=== PATIENT | female | born 1985 | race American Indian/Alaskan Native ===

== ENCOUNTER 2016-12-11 12:20 | Emergency (ER) | payer MEDICAID ==
[2016-12-11 14:47] LABS: Bacteria,Urine 1+ /HPF (Negative); Bilirubin,Urine NEG (Negative); Blood,Urine LG (Negative); Ketones,Urine NEG (Negative); Leukocyte Esterase,Urine TR (Negative); Mucus,Urine 3+ /HPF; Nitrite,Urine NEG (Negative); Urobilinogen,Urine < 2.0 mg/dL (<2.0)
[2016-12-11 15:02] LABS: Basophils % (Auto) 0.6 % (0.0-1.8); Eosinophils % (Auto) 0.1 % (0.0-4.3); Hematocrit 40.4 % (30.3-42.9); Hemoglobin 13.2 gm/dl (10.1-14.3); Mean Corpuscular HGB Conc 33 % (30-34); Mean Corpuscular Hemoglobin 29 pg (28-32); Mean Corpuscular Volume 90 fl (79-97); Platelet Count 221 K/mm3 (140-440); Red Cell Distribution Width 14.3 % (13.2-15.2); White Blood Count 5.4 K/mm3 (4.5-11.0)
[2016-12-11 15:18] LABS: Anion Gap 17 mmol/L; BUN/Creatinine Ratio 24.28; Blood Urea Nitrogen 17 mg/dL (7-17); Calcium 8.5 mg/dL (8.4-10.2); Carbon Dioxide 25 mmol/L (22-30); Chloride 100.6 mmol/L (98-107); Glucose 104 mg/dL (65-100); Potassium 3.9 mmol/L (3.6-5.0); Sodium 139 mmol/L (137-145)
[2016-12-11] MEDS ORDERED: NACL 0.9% 1000 ML 1,000 ML IV ONE (20:09)
[2016-12-11] MEDS ORDERED: ZOFRAN IV ONE (20:09)
[2016-12-11] MEDS ORDERED: TYLENOL PO ONE (20:10)
--- NOTE | 2016-12-11 20:20 | Emergency Department Report ---
HPI - General Chief Complaint: Nausea/Vomiting/Diarrhea - HPI HPI: 31-year-old female comes in for complaint of nausea vomiting up blood since about 3 AM. Patient reports that she went out last night had a few drinks came home and started vomiting blood she reports that she's had 2 episodes of blood in her vomit. Patient admits to nausea vomiting fever chills body aches patient the legs or arms she feels like she is coming down with the flu. She has past medical history of non-she currently takes no medications. She is not on any control her menses started today since being here at the ER. 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 dysuria no vaginal discharge she does report now that she is having chest pain feels tight since she's got here only had gracy rachana. ED Past Medical Hx - Past Medical History Hx Hypertension: Yes Hx Congestive Heart Failure: No Hx Diabetes: No Hx Deep Vein Thrombosis: No Hx Liver Disease: No Hx Renal Disease: No Hx Sickle Cell Disease: No Hx Seizures: No Hx Asthma: No Hx COPD: No Hx HIV: No - Surgical History Additional Surgical History: cyst on right buttock - Social History Smoking Status: Never Smoker Substance Use Type: Alcohol - Medications Home Medications: Home Medications Medication Instructions Recorded Confirmed Last Taken Type Diphenhydramine HCl [Benadryl 25 mg PO Q6H #30 tablet 10/12/16 Unknown Rx Allergy TAB] ED Review of Systems ROS: Stated complaint: VOMITING BLOOD Other details as noted in HPI Physical Exam - Physical Exam Vital Signs: Vital Signs 12/11/16 12/11/16 14:06 18:36 Temperature 99.2 F 100.2 F H Pulse Rate 110 H 105 H Respiratory 16 16 Rate Blood Pressure 144/97 Blood Pressure 147/99 [Left] O2 Sat by Pulse 100 100 Oximetry Physical Exam: GENERAL: Alert and oriented x3, no apparent distress, Normal Gait, atraumatic. HEAD: Head is normocephalic and a-traumatic. EYES: Extra ocular muscles are intact. Pupils are equal, round, and reactive to light and accommodation. EARS: symetrical, atraumatic, non tender, ear canal clear and moderate cerumen, tympanic membrance non inflamed. gross auditory nml bilaterally. NOSE: Nose symetrical, Nontender,Nares appeared normal. MOUTH:Mouth is well hydrated and without lesions. Tonsils nonerythematous or swollen, Uvula midline, Tongue not elevated. Mucous membranes are moist. Posterior tongue piercing ,pharynx clear, no exudate or lesions. Patent airways. NECK: Supple. Non edematous, No carotid bruits. No lymphadenopathy or thyromegaly. LUNGS: Symetrical with respiration, No wheezing, no rales or crackles, CTAB. HEART: S1, S2 present, regular rate and rhythm without murmur, no rubs, no gallops. ABDOMEN: No organomegaly was noted, Positive bowel sounds, soft, and non- distended. . Tender to palpation epigastric and LUQ. NO CVA tenderness. EXTREMITIES/MUSCULOSKELETAL: No cyanosis, clubbing, rash, lesions or edema. Full ROM bilaterally. UE/E Pulses 2+ bilaterally. LE and UE 5+ strength bilaterally NEUROLOGIC: No focal Deficit, Cranial nerves II through XII are grossly intact. No loss of sensation, No facial droop, Negative rhomberg. PSYCHIATRIC: Mood is congruent with affect, denies suicidal or homicidal ideations. SKIN: Warm and dry, No lesions, No ulceration or induration present ED Course Vital Signs 12/11/16 12/11/16 14:06 18:36 Temperature 99.2 F 100.2 F H Pulse Rate 110 H 105 H Respiratory 16 16 Rate Blood Pressure 144/97 Blood Pressure 147/99 [Left] O2 Sat by Pulse 100 100 Oximetry ED Medical Decision Making - Lab Data Result diagrams: 12/11/16 14:43 12/11/16 14:43 - Radiology Data Radiology results: image reviewed FINAL REPORT PROCEDURE: XR CHEST ROUTINE 2V TECHNIQUE: Two views of the chest are obtained HISTORY: chest pain chest tightness COMPARISON: No prior studies are available for comparison. FINDINGS: The heart is normal in size. There is no focal infiltrate, pneumothorax or pleural effusion. IMPRESSION: No abnormalities are seen. Transcribed By: PATT Dictated By: MARYAN SOTO JR, MD Electronically Authenticated By: MARYAN SOTO JR, MD Signed Date/Time: 12/11/162243 - Medical Decision Making CBC CMP and lipase amylase CK MB troponin IV fluids normal saline 1000 mL Tylenol 975 mg UA. Has been ordered. Critical care attestation.: If time is entered above; I have spent that time in minutes in the direct care of this critically ill patient, excluding procedure time. ED Disposition Clinical Impression: Nausea & vomiting Qualifiers: Vomiting type: unspecified Vomiting Intractability: non-intractable Qualified Code(s): R11.2 - Nausea with vomiting, unspecified Disposition: DISCHARGED TO HOME OR SELFCARE Is pt being admited?: No Does the pt Need Aspirin: No Condition: Stable Instructions: Acute Nausea and Vomiting (ED) Additional Instructions: Please contained to drink follow with the primary care provider. Referrals: BETTE RENDON MD [Primary Care Provider] - 3-5 Days BRITT REED MD [Staff Physician] - 3-5 Days Forms: Work/School Release Form(ED)
[2016-12-11 21:29] LABS: Amylase 80 units/L (27-131); Lipase 21 units/L (13-60)
[2016-12-11 21:32] LABS: Creatine Kinase 106 units/L (30-135)
[2016-12-11 21:36] LABS: Creatine Kinase MB < 1.0 ng/mL (0.0-4.0)
--- NOTE | 2016-12-11 21:47 | XRay Report ---
FINAL REPORT PROCEDURE: XR CHEST ROUTINE 2V TECHNIQUE: Two views of the chest are obtained HISTORY: chest pain chest tightness COMPARISON: No prior studies are available for comparison. FINDINGS: The heart is normal in size. There is no focal infiltrate, pneumothorax or pleural effusion. IMPRESSION: No abnormalities are seen.
[2016-12-11 23:12] VITALS: BP 112/76
== END 2016-12-12 01:35 | disposition home or self-care (01) ==
LOC: ED 12:20
DX: R11.2 Nausea with vomiting, unspecified (principal); I10 Essential (primary) hypertension
CPT/HCPCS: 36415; 71020; 80048; 81001; 81025; 82150; 82550; 82553; 83690; 84484; 85025; 87400; 93005; 93010; 96361; 96374; 99284; J2405; J7030; 82962

== ENCOUNTER 2017-03-10 18:24 | Emergency (ER) | payer MEDICAID ==
[2017-03-10 19:08] VITALS: BP 158/101
[2017-03-10] MEDS ORDERED: NORCO 5/325 PO ONE (21:48)
--- NOTE | 2017-03-10 21:52 | Emergency Department Report ---
- General Chief complaint: Skin/Abscess/Foreign Body Stated complaint: SPIDER BITE ON LEFT BUTTOCKS Source: patient Mode of arrival: Ambulatory Limitations: No Limitations - History of Present Illness Initial comments: 31-year-old -[place] female comes in for complaint: The buttocks area. Patient reports that she had an on 03/08/2017 and noticed a visible in the buttocks area for one day. Patient reports no past medical history currently takes no medication has no known drug allergies. Patient reports that she did have a history of them and had to have surgery for pilonidal cyst. MD complaint: abscess/boil -: days(s) (1) Location: buttocks Severity: severe Severity scale (0 -10): 10 Quality: sharp Consistency: intermittent Worsens with: palpation - Related Data Previous Rx's Medication Instructions Recorded Last Taken Type Diphenhydramine HCl [Benadryl 25 mg PO Q6H #30 tablet 10/12/16 Unknown Rx Allergy TAB] Acetaminophen/Codeine [Tylenol 1 tab PO Q6H PRN #20 tab 03/10/17 Unknown Rx /Codeine # 3 tab] Cephalexin [Keflex] 500 mg PO QID #40 capsule 03/10/17 Unknown Rx Allergies Allergy/AdvReac Type Severity Reaction Status Date / Time No Known Allergies Allergy Verified 08/08/15 16:38 Abscess Boil HPI - HPI Chief Complaint: Skin/Abscess/Foreign Body Stated Complaint: SPIDER BITE ON LEFT BUTTOCKS Home Medications: Previous Rx's Medication Instructions Recorded Last Taken Type Diphenhydramine HCl [Benadryl 25 mg PO Q6H #30 tablet 10/12/16 Unknown Rx Allergy TAB] Acetaminophen/Codeine [Tylenol 1 tab PO Q6H PRN #20 tab 03/10/17 Unknown Rx /Codeine # 3 tab] Cephalexin [Keflex] 500 mg PO QID #40 capsule 03/10/17 Unknown Rx Allergies/Adverse Reactions: Allergies Allergy/AdvReac Type Severity Reaction Status Date / Time No Known Allergies Allergy Verified 08/08/15 16:38 ED Review of Systems ROS: Stated complaint: SPIDER BITE ON LEFT BUTTOCKS Other details as noted in HPI Constitutional: denies: chills, fever Eyes: denies: eye pain, eye discharge, vision change ENT: denies: ear pain, throat pain Respiratory: denies: cough, shortness of breath, wheezing Cardiovascular: denies: chest pain, palpitations Endocrine: no symptoms reported Gastrointestinal: denies: abdominal pain, nausea, diarrhea Genitourinary: denies: urgency, dysuria, discharge Musculoskeletal: denies: back pain, joint swelling, arthralgia Skin: lesions Neurological: denies: headache, weakness, paresthesias Psychiatric: denies: anxiety, depression ED Past Medical Hx - Past Medical History Previous Medical History?: Yes Hx Hypertension: Yes Hx Congestive Heart Failure: No Hx Diabetes: No Hx Deep Vein Thrombosis: No Hx Liver Disease: No Hx Renal Disease: No Hx Sickle Cell Disease: No Hx Seizures: No Hx Asthma: No Hx COPD: No Hx HIV: No - Surgical History Past Surgical History?: Yes Additional Surgical History: cyst on right buttock - Social History Smoking Status: Never Smoker Substance Use Type: Alcohol, Prescribed - Medications Home Medications: Home Medications Medication Instructions Recorded Confirmed Last Taken Type Diphenhydramine HCl [Benadryl 25 mg PO Q6H #30 tablet 10/12/16 Unknown Rx Allergy TAB] Acetaminophen/Codeine [Tylenol 1 tab PO Q6H PRN #20 tab 03/10/17 Unknown Rx /Codeine # 3 tab] Cephalexin [Keflex] 500 mg PO QID #40 capsule 03/10/17 Unknown Rx ED Physical Exam - General Limitations: No Limitations General appearance: alert, in no apparent distress - Head Head exam: Present: atraumatic, normocephalic - ENT ENT exam: Present: normal exam - Neck Neck exam: Present: normal inspection - Respiratory Respiratory exam: Present: normal lung sounds bilaterally. Absent: respiratory distress - Skin Skin exam: Present: warm, dry, intact, erythema - Expanded Skin Exam Expanded Description of rash: Present: size, tenderness, erythematous, swelling, indurated 1 - indurated with erythematous base tender to palpate ED Course Vital Signs 03/10/17 19:05 Temperature 99.1 F Pulse Rate 87 Respiratory 20 Rate Blood Pressure 158/101 O2 Sat by Pulse 100 Oximetry ED Medical Decision Making - Medical Decision Making Assessment evaluated by this provider fast track. Discussed the patient please refer antibiotics give her Diflucan for the yeast infection that she reports she commonly gets after being on antibiotic therapy. Discussed the patient she needs to place warm moist compresses to the area every 20 minutes to an hour and to return for reevaluation in 3-4 days. Discussed with her that is very important for her to take her antibiotics as prescribed. Critical care attestation.: If time is entered above; I have spent that time in minutes in the direct care of this critically ill patient, excluding procedure time. ED Disposition Clinical Impression: Boil of buttock Disposition: DISCHARGED TO HOME OR SELFCARE Is pt being admited?: No Does the pt Need Aspirin: No Condition: Stable Instructions: Abscess (ED) Additional Instructions: Pleases take antibiotics as prescribed. Do not operate heavy machinery while taking the Tylenol No. 3. Please [address] warm compresses to the abscess site and return to be reevaluated in 3-5 days. Prescriptions: Acetaminophen/Codeine [Tylenol /Codeine # 3 tab] 1 tab PO Q6H PRN #20 tab PRN Reason: Pain Cephalexin [Keflex] 500 mg PO QID #40 capsule Referrals: PRIMARY CARE, [Primary Care Provider] - 3-5 Days Forms: Work/School Release Form(ED)
== END 2017-03-10 22:10 | disposition home or self-care (01) ==
LOC: ED 18:24
DX: L02.32 Furuncle of buttock (principal)
CPT/HCPCS: 99282

== ENCOUNTER 2019-01-17 09:28 | Emergency (ER) | payer MEDICAID ==
--- NOTE | 2019-01-17 10:48 | Emergency Department Report ---
Abscess Boil HPI - HPI Chief Complaint: Skin/Abscess/Foreign Body Stated Complaint: LOWER BACK/BUTTOCKS Time Seen by Provider: 01/17/19 10:07 Duration: 1 Day Location: Sacral/Pilonidal Severity: Mild History: Yes Previous History, No Fever, No Pain, No Purulent Drainage, No Numbness, No Foreign Body, No Insect Bite HPI: Patient is a 33-year-old female presents complaining pain in her bilateral region this is going on for a day. Patient states that she had pilonidal cyst many years ago and thinks it uis back. She denies injury, trauma, fall Home Medications: Previous Rx's Medication Instructions Recorded Last Taken Type Diphenhydramine HCl [Benadryl 25 mg PO Q6H #30 tablet 10/12/16 Unknown Rx Allergy TAB] Acetaminophen/Codeine [Tylenol 1 tab PO Q6H PRN #20 tab 03/10/17 Unknown Rx /Codeine # 3 tab] Cephalexin [Keflex] 500 mg PO QID #40 capsule 03/10/17 Unknown Rx Clindamycin [Clindamycin CAP] 300 mg PO Q8H #21 cap 01/17/19 Unknown Rx Ibuprofen [Motrin] 800 mg PO Q8HR #30 tablet 01/17/19 Unknown Rx Sulfamethoxazole/Trimethoprim 1 each PO BID #20 tablet 01/17/19 Unknown Rx [Bactrim DS TAB] Allergies/Adverse Reactions: Allergies Allergy/AdvReac Type Severity Reaction Status Date / Time No Known Allergies Allergy Verified 08/08/15 16:38 ED Review of Systems ROS: Stated complaint: LOWER BACK/BUTTOCKS Other details as noted in HPI Comment: All other systems reviewed and negative ED Past Medical Hx - Past Medical History Hx Hypertension: Yes Hx Congestive Heart Failure: No Hx Diabetes: No Hx Deep Vein Thrombosis: No Hx Liver Disease: No Hx Renal Disease: No Hx Sickle Cell Disease: No Hx Seizures: No Hx Asthma: No Hx COPD: No Hx HIV: No - Surgical History Additional Surgical History: cyst on right buttock - Social History Smoking Status: Never Smoker Substance Use Type: None - Medications Home Medications: Home Medications Medication Instructions Recorded Confirmed Last Taken Type Diphenhydramine HCl [Benadryl 25 mg PO Q6H #30 tablet 10/12/16 Unknown Rx Allergy TAB] Acetaminophen/Codeine [Tylenol 1 tab PO Q6H PRN #20 tab 05/17/17 Unknown Rx /Codeine # 3 tab] Cephalexin [Keflex] 500 mg PO QID #40 capsule 03/10/17 Unknown Rx Clindamycin [Clindamycin CAP] 300 mg PO Q8H #21 cap 01/17/19 Unknown Rx Ibuprofen [Motrin] 800 mg PO Q8HR #30 tablet 01/17/19 Unknown Rx Sulfamethoxazole/Trimethoprim 1 each PO BID #20 tablet 01/17/19 Unknown Rx [Bactrim DS TAB] ED Abscess Boil Physical Exam - Exam General: Vital signs noted. No distress. Alert and acting appropriately. Size: 1 cm Exam: Yes Tenderness, Yes Normal Neurologic Exam, Yes Normal Circulation, No Fluctuance, No Surrounding Cellulites/Erythema, No Lymphangitis, No Crepitation, No Heart Murmur Exam: Scar tissue seen and palpated pilonidal crest, no swelling, no erythema, no discharge I & D Note - I & D Note I & D Note: There is no need for incision and drainage, ED Course Vital Signs 01/17/19 01/17/19 09:33 09:37 Temperature 97.6 F 97.6 F Pulse Rate 77 77 Respiratory 16 16 Rate Blood Pressure 139/97 Blood Pressure 139/97 [Right] O2 Sat by Pulse 98 98 Oximetry Critical care attestation.: If time is entered above; I have spent that time in minutes in the direct care of this critically ill patient, excluding procedure time. ED Medical Decision Making - Medical Decision Making 33-year-old female presents with a pilonidal cyst. Patient had an pilonidal incision and drainage in 2012. At this time there is no fluctuance or sign of abscess present. We'll prophylax with patient antibiotics and heat therapy. Discussed the patient's symptoms worsen to return to the ED. Vital signs are normal she is in no acute distress she understands instructions given instruction ED Disposition Clinical Impression: Pilonidal cyst without abscess Disposition: DC-01 TO HOME OR SELFCARE Is pt being admited?: No Does the pt Need Aspirin: No Condition: Stable Instructions: Abscess (ED), Cellulitis (ED), Heat Pack Application (ED) Additional Instructions: Make sure to follow up with the primary care physician as discussed. Take all your medications as you've been prescribed. If you have any worsening symptoms or develop new symptoms please return to ED immediately. Prescriptions: Sulfamethoxazole/Trimethoprim [Bactrim DS TAB] 1 each PO BID #20 tablet Clindamycin [Clindamycin CAP] 300 mg PO Q8H #21 cap Ibuprofen [Motrin] 800 mg PO Q8HR #30 tablet Referrals: SANDEE STEWART MD [Primary Care Provider] - 3-5 Days Forms: Accompanied Note, Work/School Release Form(ED) Time of Disposition: 10:52
[2019-01-17] MEDS ORDERED: IBUPROFEN PO ONE (11:00)
[2019-01-17] MEDS ORDERED: IBUPROFEN ONE (11:09)
[2019-01-17 11:19] VITALS: BP 135/88
== END 2019-01-17 11:18 | disposition home or self-care (01) ==
LOC: ED 09:28
DX: L05.91 Pilonidal cyst without abscess (principal); I10 Essential (primary) hypertension
CPT/HCPCS: 99282

== ENCOUNTER 2019-08-04 11:31 | Emergency (ER) | payer MEDICAID ==
--- NOTE | 2019-08-04 11:44 | Event Note ---
ED Screening Note Date of service: 08/04/19 Time: 11:42 ED Screening Note: 34 y/o female comes in for cough, fever, nasal congestion. Time 2 day. LMP 07/05/19. This initial assessment/diagnostic orders/clinical plan/treatment(s) is/are subject to change based on patients health status, clinical progression and re- assessment by fellow clinical providers in the ED. Further treatment and workup at subsequent clinical providers discretion. Patient/guardian urged not to elope from the ED as their condition may be serious if not clinically assessed and managed. Initial orders include:
--- NOTE | 2019-08-04 12:08 | XRay Report ---
CHEST 2 VIEWS INDICATION / CLINICAL INFORMATION: cough with fever. COMPARISON: Chest x-ray 12/11/2016 FINDINGS: SUPPORT DEVICES: None. HEART / MEDIASTINUM: No significant abnormality. LUNGS / PLEURA: No significant pulmonary or pleural abnormality. No pneumothorax. ADDITIONAL FINDINGS: No significant additional findings. IMPRESSION: 1. No acute findings. Signer Name: Phillip Ying MD Signed: 08/04/2019 12:03 PM Workstation Name: [id number]
--- NOTE | 2019-08-04 14:11 | Emergency Department Report ---
- General Chief Complaint: Upper Respiratory Infection Stated Complaint: FLU LIKE SX Time Seen by Provider: 08/04/19 11:40 Source: patient Mode of arrival: Ambulatory Limitations: No Limitations - History of Present Illness Initial Comments: Patient reports flu-like symptoms that started two days ago MD Complaint: fever, cough, rhinorrhea, nasal congestion, other (chills) Onset/Timin -: days(s) Severity: moderate Severity scale (0 -10): 6 Quality: other (none) Consistency: intermittent Improves With: nothing Worsens With: activity Context: sick contacts Associated Symptoms: fever, chills, myalgias, rhinorrhea, nasal congestion, cough. denies: diaphoresis, headache, sore throat, stiff neck, chest pain, shortness of breath, abdominal pain, nausea, vomiting, diarrhea, dysuria, rash, confusion, right sweats, weight loss, epistaxis, hoarseness, ear pain Treatments Prior to Arrival: "cold medicine" - Related Data Previous Rx's Medication Instructions Recorded Last Taken Type Diphenhydramine HCl [Benadryl 25 mg PO Q6H #30 tablet 10/12/16 Unknown Rx Allergy TAB] Acetaminophen/Codeine [Tylenol 1 tab PO Q6H PRN #20 tab 03/10/17 Unknown Rx /Codeine # 3 tab] Cephalexin [Keflex] 500 mg PO QID #40 capsule 03/10/17 Unknown Rx Clindamycin [Clindamycin CAP] 300 mg PO Q8H #21 cap 01/17/19 Unknown Rx Ibuprofen [Motrin] 800 mg PO Q8HR #30 tablet 01/17/19 Unknown Rx Sulfamethoxazole/Trimethoprim 1 each PO BID #20 tablet 01/17/19 Unknown Rx [Bactrim DS TAB] Cyclobenzaprine [Flexeril 10mg] 10 mg PO Q12H PRN #14 tablet 03/04/19 Unknown Rx Ibuprofen [Motrin] 800 mg PO Q8HR PRN #12 tablet 03/04/19 Unknown Rx Fexofenadine/Pseudoephedrine 1 each PO DAILY #15 tab.er.24h 08/04/19 Unknown Rx [Ana-D 24 Hour Tablet] Ibuprofen [Motrin 600 MG tab] 600 mg PO Q8H PRN #30 tablet 08/04/19 Unknown Rx guaiFENesin ER [Mucinex ER] 600 mg PO Q12H #20 tablet.er 08/04/19 Unknown Rx predniSONE [Deltasone] 50 mg PO QDAY #5 tab 08/04/19 Unknown Rx Allergies Allergy/AdvReac Type Severity Reaction Status Date / Time No Known Allergies Allergy Verified 08/08/15 16:38 ED Review of Systems ROS: Stated complaint: FLU LIKE SX Other details as noted in HPI Constitutional: chills, fever Eyes: denies: eye pain, eye discharge, vision change ENT: congestion. denies: ear pain, throat pain Respiratory: cough. denies: orthopnea, shortness of breath, SOB with exertion, SOB at rest, stridor, wheezing Cardiovascular: denies: chest pain, palpitations Endocrine: no symptoms reported Gastrointestinal: denies: abdominal pain, nausea, diarrhea, constipation, hematemesis, melena Genitourinary: denies: urgency, dysuria, discharge Musculoskeletal: denies: back pain, joint swelling, arthralgia Skin: denies: rash, lesions Neurological: denies: headache, weakness, paresthesias Psychiatric: denies: anxiety, depression Hematological/Lymphatic: denies: easy bleeding, easy bruising ED Past Medical Hx - Past Medical History Previous Medical History?: Yes Hx Hypertension: Yes Hx Congestive Heart Failure: No Hx Diabetes: No Hx Deep Vein Thrombosis: No Hx Liver Disease: No Hx Renal Disease: No Hx Sickle Cell Disease: No Hx Seizures: No Hx Asthma: No Hx COPD: No Hx HIV: No Additional medical history: Vaginal delivery x 2 - Surgical History Past Surgical History?: Yes Additional Surgical History: cyst on right buttock - Social History Smoking Status: Never Smoker Substance Use Type: Alcohol - Medications Home Medications: Home Medications Medication Instructions Recorded Confirmed Last Taken Type Diphenhydramine HCl [Benadryl 25 mg PO Q6H #30 tablet 10/12/16 Unknown Rx Allergy TAB] Acetaminophen/Codeine [Tylenol 1 tab PO Q6H PRN #20 tab 03/10/17 Unknown Rx /Codeine # 3 tab] Cephalexin [Keflex] 500 mg PO QID #40 capsule 03/10/17 Unknown Rx Clindamycin [Clindamycin CAP] 300 mg PO Q8H #21 cap 01/17/19 Unknown Rx Ibuprofen [Motrin] 800 mg PO Q8HR #30 tablet 01/17/19 Unknown Rx Sulfamethoxazole/Trimethoprim 1 each PO BID #20 tablet 01/17/19 Unknown Rx [Bactrim DS TAB] Cyclobenzaprine [Flexeril 10mg] 10 mg PO Q12H PRN #14 tablet 03/04/19 Unknown Rx Ibuprofen [Motrin] 800 mg PO Q8HR PRN #12 tablet 03/04/19 Unknown Rx Fexofenadine/Pseudoephedrine 1 each PO DAILY #15 tab.er.24h 08/04/19 Unknown Rx [Ana-D 24 Hour Tablet] Ibuprofen [Motrin 600 MG tab] 600 mg PO Q8H PRN #30 tablet 08/04/19 Unknown Rx guaiFENesin ER [Mucinex ER] 600 mg PO Q12H #20 tablet.er 08/04/19 Unknown Rx predniSONE [Deltasone] 50 mg PO QDAY #5 tab 08/04/19 Unknown Rx ED Physical Exam - General Limitations: No Limitations General appearance: alert, in no apparent distress - Head Head exam: Present: atraumatic, normocephalic - ENT ENT exam: Present: normal orophraynx, mucous membranes moist, TM's normal bilaterally, normal external ear exam, other (nasal turbinates with swelling ) - Expanded ENT Exam Expanded Ear exam: Present: normal external inspection. Absent: auricular hematoma Mouth exam: Present: normal external inspection, tongue normal. Absent: drooling, trismus, muffled voice, tongue elevation, laceration Teeth exam: Present: normal inspection. Absent: dental caries, fractured tooth #, dental tenderness #, gingival enlargement Throat exam: Positive: normal inspection. Negative: tonsillar erythema, tonsillomegaly, tonsillar exudate, L peritonsillar mass - Neck Neck exam: Present: normal inspection, full ROM. Absent: tenderness, meningismus, lymphadenopathy, thyromegaly - Respiratory Respiratory exam: Present: normal lung sounds bilaterally. Absent: respiratory distress, wheezes, rales, rhonchi, stridor, chest wall tenderness, accessory muscle use, decreased breath sounds, prolonged expiratory - Cardiovascular Cardiovascular Exam: Present: regular rate, normal rhythm, normal heart sounds. Absent: systolic murmur, diastolic murmur, rubs, gallop - Neurological Exam Neurological exam: Present: alert, oriented X3, CN II-XII intact, normal gait, reflexes normal - Psychiatric Psychiatric exam: Present: normal affect, normal mood - Skin Skin exam: Present: warm, dry, intact, normal color. Absent: rash ED Course Vital Signs 08/04/19 11:40 Temperature 98.8 F Pulse Rate 89 Respiratory 18 Rate Blood Pressure 166/56 O2 Sat by Pulse 100 Oximetry ED Medical Decision Making - Lab Data Vital Signs 08/04/19 11:40 Temperature 98.8 F Pulse Rate 89 Respiratory 18 Rate Blood Pressure 166/56 O2 Sat by Pulse 100 Oximetry - Radiology Data Radiology results: image reviewed CHEST 2 VIEWS INDICATION / CLINICAL INFORMATION: cough with fever. COMPARISON: Chest x-ray 12/11/2016 FINDINGS: SUPPORT DEVICES: None. HEART / MEDIASTINUM: No significant abnormality. LUNGS / PLEURA: No significant pulmonary or pleural abnormality. No pneumothorax. ADDITIONAL FINDINGS: No significant additional findings. IMPRESSION: 1. No acute findings - Medical Decision Making During the course of ED, all other systems are unremarkable except for documentation in HPI. Chest x-ray did not detect no acute findings. She was sent home with prescription for prednisone, ana, Ibuprofen and guaifenesin, follow up with selective referral given at discharge, she verbalized understanding. - Differential Diagnosis URI, Pneumonia, Flu Critical care attestation.: If time is entered above; I have spent that time in minutes in the direct care of this critically ill patient, excluding procedure time. ED Disposition Clinical Impression: Upper respiratory infection Qualifiers: URI type: unspecified URI Qualified Code(s): J06.9 - Acute upper respiratory infection, unspecified Disposition: DC-01 TO HOME OR SELFCARE Is pt being admited?: No Does the pt Need Aspirin: No Condition: Stable Instructions: Upper Respiratory Infection (ED) Additional Instructions: Take medication as directed. Follow up with the selective referral given at discharge Prescriptions: Fexofenadine/Pseudoephedrine [Ana-D 24 Hour Tablet] 1 each PO DAILY #15 tab.er.24h predniSONE [Deltasone] 50 mg PO QDAY #5 tab Ibuprofen [Motrin 600 MG tab] 600 mg PO Q8H PRN #30 tablet PRN Reason: Pain guaiFENesin ER [Mucinex ER] 600 mg PO Q12H #20 tablet.er Referrals: PRIMARY CARE, [Primary Care Provider] - 3-5 Days [facility] [Outside] - 3-5 Days Forms: Work/School Release Form(ED) Time of Disposition: 14:12
[2019-08-04 14:36] VITALS: BP 141/69
== END 2019-08-04 14:36 | disposition home or self-care (01) ==
LOC: ED 11:31
DX: J06.9 Acute upper respiratory infection, unspecified (principal); I10 Essential (primary) hypertension; Z79.899 Other long term (current) drug therapy
CPT/HCPCS: 71046; 99283

== ENCOUNTER 2020-02-11 23:11 | Emergency (ER) | payer MEDICAID ==
[2020-02-11] MEDS ORDERED: SODIUM CHLORIDE 0.9% 500 ML 500 ML IV ONE (23:21)
[2020-02-11] MEDS ORDERED: SODIUM CHLORIDE 0.9% 1000 ML IV SOLN IV ONE (23:39)
[2020-02-11] MEDS ORDERED: PIPERACILLIN/TAZOBACTAM 3.375 3.375 GM/50 ML BAG IV ONE (23:40)
[2020-02-11] MEDS ORDERED: ACETAMINOPHEN 500 MG TAB PO ONE (23:42)
--- NOTE | 2020-02-11 23:46 | Emergency Department Report ---
ED Abdominal Pain HPI - General Chief Complaint: Abdominal Pain Stated Complaint: ABDOMINAL PAIN/BOTTOM HEARTS Time Seen by Provider: 02/11/20 23:38 Source: patient Mode of arrival: Ambulatory Limitations: No Limitations - History of Present Illness Initial Comments: Patient is 34 years old female with no significant past medical history. Patient presented to the ER complaining of lower abdominal pain, pressure in nature, pain increased with urination. Patient also complaining of fever. Patient stated that she had an 3 days ago. She stated that baby was 7 weeks. Patient denied any cough, shortness of breath, congestion or runny nose. Patient denied any contact with patient who is suspected or confirmed COVID-19. During my encounters with this patient was wearing my PPE including and N-95. MD Complaint: abdominal pain Severity scale (0 -10): 10 - Related Data Previous Rx's Medication Instructions Recorded Last Taken Type Diphenhydramine HCl [Benadryl 25 mg PO Q6H #30 tablet 10/12/16 Unknown Rx Allergy TAB] Acetaminophen/Codeine [Tylenol 1 tab PO Q6H PRN #20 tab 03/10/17 Unknown Rx /Codeine # 3 tab] Cephalexin [Keflex] 500 mg PO QID #40 capsule 03/10/17 Unknown Rx Clindamycin [Clindamycin CAP] 300 mg PO Q8H #21 cap 01/17/19 Unknown Rx Ibuprofen [Motrin] 800 mg PO Q8HR #30 tablet 01/17/19 Unknown Rx Sulfamethoxazole/Trimethoprim 1 each PO BID #20 tablet 01/17/19 Unknown Rx [Bactrim DS TAB] Cyclobenzaprine [Flexeril 10mg] 10 mg PO Q12H PRN #14 tablet 03/04/19 Unknown Rx Ibuprofen [Motrin] 800 mg PO Q8HR PRN #12 tablet 03/04/19 Unknown Rx Fexofenadine/Pseudoephedrine 1 each PO DAILY #15 tab.er.24h 08/04/19 Unknown Rx [Ana-D 24 Hour Tablet] Ibuprofen [Motrin 600 MG tab] 600 mg PO Q8H PRN #30 tablet 08/04/19 Unknown Rx guaiFENesin ER [Mucinex ER] 600 mg PO Q12H #20 tablet.er 08/04/19 Unknown Rx predniSONE [Deltasone] 50 mg PO QDAY #5 tab 08/04/19 Unknown Rx Allergies Allergy/AdvReac Type Severity Reaction Status Date / Time No Known Allergies Allergy Verified 08/08/15 16:38 ED Review of Systems ROS: Stated complaint: ABDOMINAL PAIN/BOTTOM HEARTS Other details as noted in HPI Comment: All other systems reviewed and negative Constitutional: chills, fever Respiratory: denies: cough, orthopnea, shortness of breath, SOB with exertion, SOB at rest, wheezing Cardiovascular: palpitations. denies: chest pain Gastrointestinal: abdominal pain. denies: nausea, vomiting, diarrhea, constipation, hematemesis, melena Genitourinary: urgency, dysuria, frequency, hematuria, abnormal menses Musculoskeletal: denies: back pain Neurological: denies: headache ED Past Medical Hx - Past Medical History Previous Medical History?: Yes Hx Hypertension: Yes Hx Congestive Heart Failure: No Hx Diabetes: No Hx Deep Vein Thrombosis: No Hx Liver Disease: No Hx Renal Disease: No Hx Sickle Cell Disease: No Hx Seizures: No Hx Asthma: No Hx COPD: No Hx HIV: No Additional medical history: Vaginal delivery x 2 - Surgical History Past Surgical History?: Yes Additional Surgical History: cyst on right buttock. - Social History Smoking Status: Never Smoker Substance Use Type: None - Medications Home Medications: Home Medications Medication Instructions Recorded Confirmed Last Taken Type Diphenhydramine HCl [Benadryl 25 mg PO Q6H #30 tablet 10/12/16 Unknown Rx Allergy TAB] Acetaminophen/Codeine [Tylenol 1 tab PO Q6H PRN #20 tab 03/10/17 Unknown Rx /Codeine # 3 tab] Cephalexin [Keflex] 500 mg PO QID #40 capsule 03/10/17 Unknown Rx Clindamycin [Clindamycin CAP] 300 mg PO Q8H #21 cap 01/17/19 Unknown Rx Ibuprofen [Motrin] 800 mg PO Q8HR #30 tablet 01/17/19 Unknown Rx Sulfamethoxazole/Trimethoprim 1 each PO BID #20 tablet 01/17/19 Unknown Rx [Bactrim DS TAB] Cyclobenzaprine [Flexeril 10mg] 10 mg PO Q12H PRN #14 tablet 03/04/19 Unknown Rx Ibuprofen [Motrin] 800 mg PO Q8HR PRN #12 tablet 03/04/19 Unknown Rx Fexofenadine/Pseudoephedrine 1 each PO DAILY #15 tab.er.24h 08/04/19 Unknown Rx [Ana-D 24 Hour Tablet] Ibuprofen [Motrin 600 MG tab] 600 mg PO Q8H PRN #30 tablet 08/04/19 Unknown Rx guaiFENesin ER [Mucinex ER] 600 mg PO Q12H #20 tablet.er 08/04/19 Unknown Rx predniSONE [Deltasone] 50 mg PO QDAY #5 tab 08/04/19 Unknown Rx ED Physical Exam - General Limitations: No Limitations General appearance: alert, in no apparent distress - Head Head exam: Present: atraumatic, normocephalic, normal inspection - Eye Eye exam: Present: normal appearance - ENT ENT exam: Present: mucous membranes dry - Neck Neck exam: Present: normal inspection, full ROM. Absent: tenderness, meningismus - Respiratory Respiratory exam: Present: normal lung sounds bilaterally - Cardiovascular Cardiovascular Exam: Present: tachycardia - GI/Abdominal GI/Abdominal exam: Present: soft, tenderness (Suprapubic tenderness,), normal bowel sounds. Absent: distended, guarding, rebound, rigid, organomegaly, mass, bruit, pulsatile mass, hernia - Extremities Exam Extremities exam: Present: normal inspection, full ROM, normal capillary refill. Absent: pedal edema, calf tenderness - Back Exam Back exam: Present: normal inspection, full ROM. Absent: CVA tenderness (R), CVA tenderness (L) - Neurological Exam Neurological exam: Present: alert, oriented X3, CN II-XII intact, normal gait, reflexes normal. Absent: motor sensory deficit - Psychiatric Psychiatric exam: Present: normal mood - Skin Skin exam: Present: warm, dry, intact, normal color ED Course Vital Signs 02/11/20 02/11/20 02/11/20 23:20 23:21 23:38 Temperature 101.9 F H 101.9 F H Pulse Rate 129 H 115 H Respiratory 16 18 13 Rate Blood Pressure 85/37 Blood Pressure 85/37 [Right] O2 Sat by Pulse 99 Oximetry 02/11/20 02/11/20 02/11/20 23:41 23:43 23:46 Temperature Pulse Rate 102 H Respiratory 22 11 L Rate Blood Pressure 139/70 139/70 Blood Pressure [Right] O2 Sat by Pulse 99 99 Oximetry 02/11/20 02/12/20 02/12/20 23:50 00:26 00:30 Temperature Pulse Rate 108 H 104 H 96 H Respiratory 14 16 26 H Rate Blood Pressure 139/70 146/76 152/77 Blood Pressure [Right] O2 Sat by Pulse 99 Oximetry 02/12/20 02/12/20 02/12/20 00:46 01:00 01:16 Temperature Pulse Rate 97 H 91 H 91 H Respiratory 21 14 10 L Rate Blood Pressure 152/77 139/70 121/57 Blood Pressure [Right] O2 Sat by Pulse Oximetry ED Medical Decision Making - Lab Data Result diagrams: 02/11/20 23:42 02/11/20 23:42 - Radiology Data Radiology results: report reviewed - Medical Decision Making Patient is 34 years old female with no significant past medical history. Patient presented to the ER complaining of lower abdominal pain, pressure in nature, pain increased with urination. Patient also complaining of fever. Patient stated that she had an 3 days ago. She stated that baby was 7 weeks. Patient denied any cough, shortness of breath, congestion or runny nose. Patient denied any contact with patient who is suspected or confirmed COVID- 19. Sepsis protocol initiated immediately. Patient received normal saline and Zosyn. Patient stated that she is feeling much better. Labs reviewed and is unremarkable including a hemoglobin of 10. Lactic acid is 1. Patient received morphine for pain. Ultrasound of the pelvis showed thickened endometrial with a differential diagnosis of bleeding versus retained products of conception however the radiologist is thinking is more likely secondary to bleeding. I discussed the patient with , OB on-call, he advised patient can be discharged home and to follow-up with her OB that did the procedure for the portion. He also advised to give patient prescription for Cytotec, clindamycin and Zithromax. Patient is medically stable for discharge. Patient advised to return to the ER if she develop any new symptoms. Critical care attestation.: If time is entered above; I have spent that time in minutes in the direct care of this critically ill patient, excluding procedure time. ED Disposition Clinical Impression: Fever, Hypotension, Disposition: DC-01 TO HOME OR SELFCARE Is pt being admited?: No Condition: Stable Instructions: Abdominal Pain (ED), Fever in Adults (ED) Referrals: PRIMARY CARE, [Primary Care Provider] - 3-5 Days
[2020-02-12 00:01] LABS: Basophils % (Auto) 0.6 % (0.0-1.8); Eosinophils # (Auto) 0.1 K/mm3 (0.0-0.4); Eosinophils % (Auto) 1.4 % (0.0-4.3); Hematocrit 32.9 % (30.3-42.9); Hemoglobin 10.8 gm/dl (10.1-14.3); Lymphocytes % (Auto) 11.9 % (13.4-35.0); Mean Corpuscular HGB Conc 33 % (30-34); Mean Corpuscular Volume 87 fl (79-97); Monocytes # (Auto) 0.5 K/mm3 (0.0-0.8); Monocytes % (Auto) 6.6 % (0.0-7.3); Platelet Count 227 K/mm3 (140-440); Red Blood Count 3.77 M/mm3 (3.65-5.03); Red Cell Distribution Width 16.3 % (13.2-15.2)
[2020-02-12 00:11] LABS: INR 0.98 (0.87-1.13)
[2020-02-12 00:22] LABS: Albumin 4.1 g/dL (3.9-5); BUN/Creatinine Ratio 19; Blood Urea Nitrogen 13 mg/dL (7-17); Hemolysis Index 1
[2020-02-12 00:28] LABS: Alanine Aminotransferase < 5 units/L (7-56)
--- NOTE | 2020-02-12 00:51 | Ultrasound Report ---
ULTRASOUND PELVIS INDICATION / CLINICAL INFORMATION: ABDOMINAL PAIN , status post 3 days ago.. TECHNIQUE: Transabdominal. Transvaginal Duplex Color Doppler used: Yes. COMPARISON: None available FINDINGS: UTERUS: Present. - Appearance (if present): Markedly thickened heterogeneous endometrial complex. Probable small fibro id along the anterior fundal region measuring 3.0 x 2.0 cm. - Size in cm (if present): 13.6 x 7.1 x 8.4 cm. - Endometrial Complex (if present): Markedly thickened and heterogeneous in appearance. Color Doppler does not demonstrate any increased abnormal vascularity within the endometrium.. Thickness in cm (if measured) = 4.7 cm - Mass lesions: Small fibroid, as detailed above. - Additional findings: None. LEFT ADNEXA: No significant ovarian cyst or mass. Normal color Doppler blood flow. FREE FLUID: Minimal free fluid present in the posterior cul-de-sac. ADDITIONAL FINDINGS: None. IMPRESSION: 1. Markedly thickened heterogeneous endometrium. There is no suggestion of hypervascularity within th e endometrium. Differential diagnosis includes thickened endometrium due to hemorrhage versus possibl e retained products of conception. The lack of any vascularity within the thickened endometrium is mo re suggestive of hemorrhage rather than retained products. 2. Trace free fluid in the posterior cul-de-sac. Signer Name: Leeanne Abraham MD Signed: 02/12/2020 12:47 AM Workstation Name: [id number]
--- NOTE | 2020-02-12 01:13 | XRay Report ---
CHEST 1 VIEW INDICATION / CLINICAL INFORMATION: possible Sepsis. COMPARISON: 08/04/2019 FINDINGS: SUPPORT DEVICES: None. HEART / MEDIASTINUM: No significant abnormality. LUNGS / PLEURA: No significant pulmonary or pleural abnormality. No pneumothorax. ADDITIONAL FINDINGS: No significant additional findings. IMPRESSION: 1. No acute findings. No interval change. Signer Name: Leeanne Abraham MD Signed: 02/12/2020 1:08 AM Workstation Name: [id number]
[2020-02-12 01:15] LABS: Bacteria,Urine 1+ /HPF (Negative); Bilirubin,Urine NEG (Negative); Blood,Urine SM (Negative); Color,Urine Yellow (Yellow); Mucus,Urine 3+ /HPF; Urobilinogen,Urine < 2.0 mg/dL (<2.0)
[2020-02-12] MEDS ORDERED: MORPHINE 4 MG/1 ML INJ IV ONE (01:26)
[2020-02-12 02:46] VITALS: BP 113/56
== END 2020-02-12 02:58 | disposition home or self-care (01) ==
LOC: ED 23:11
DX: O03.9 Complete or unspecified spontaneous abortion without complication (principal); O26.891 Other specified pregnancy related conditions, first trimester; O26.51 Maternal hypotension syndrome, first trimester; R50.9 Fever, unspecified; Z3A.01 Less than 8 weeks gestation of pregnancy; Z79.899 Other long term (current) drug therapy; Z98.890 Other specified postprocedural states
CPT/HCPCS: 36415; 71045; 76830; 76856; 80053; 81001; 82140; 82805; 84703; 85025; 85610; 87040; 87086; 93005; 96365; 96366; 96375; 99285; J2270; J2543; J7030

== ENCOUNTER 2020-02-15 21:18 | Emergency (ER) | payer MEDICAID ==
[2020-02-15 21:56] LABS: Basophils # (Auto) 0.1 K/mm3 (0.0-0.1); Eosinophils # (Auto) 0.1 K/mm3 (0.0-0.4); Hematocrit 32.5 % (30.3-42.9); Hemoglobin 10.9 gm/dl (10.1-14.3); Mean Corpuscular HGB Conc 33 % (30-34); Mean Corpuscular Volume 87 fl (79-97); Monocytes # (Auto) 0.5 K/mm3 (0.0-0.8); Monocytes % (Auto) 5.7 % (0.0-7.3); Platelet Count 309 K/mm3 (140-440); Red Blood Count 3.73 M/mm3 (3.65-5.03); Red Cell Distribution Width 16.3 % (13.2-15.2)
[2020-02-15] MEDS ORDERED: SODIUM CHLORIDE 0.9% 1000 ML 1,000 ML IV ONE (22:01)
[2020-02-15] MEDS ORDERED: ONDANSETRON 4 MG/2 ML INJ IV ONE (22:01)
[2020-02-15] MEDS ORDERED: MORPHINE 4 MG/1 ML INJ IV ONE (22:01)
[2020-02-15 22:19] LABS: Alanine Aminotransferase 10 units/L (7-56); Albumin 4.1 g/dL (3.9-5); BUN/Creatinine Ratio 14; Blood Urea Nitrogen 11 mg/dL (7-17); Calcium 9.1 mg/dL (8.4-10.2); Hemolysis Index 19
--- NOTE | 2020-02-15 22:59 | Emergency Department Report ---
ED Female HPI - General Chief complaint: Vaginal Bleeding Stated complaint: ABDOMINAL PAIN/HEAVY BLEEDING Time Seen by Provider: 02/15/20 21:58 Source: patient Mode of arrival: Ambulatory Limitations: No Limitations - History of Present Illness Initial comments: Patient is a 34-year-old female presents emergency room with complaints of heavy vaginal bleeding and lower abdominal cramping that began today. She states that she is having to change her pad approximately every 20 to 30 minutes. Patient states on 02/09/2020 she had an at [facility] in [place]. Patient was evaluated in the emergency department on 02/12/2020 and had u ltrasound performed at that time which showed thickened endometrium secondary to hemorrhage versus retained products [employer] was consulted at that time, and patient was discharged with [place], misoprostol, Zofran. She states that she completed the medication and that the bleeding had significantly decreased but then began to feel the symptoms again today. She did not follow-up with an [facility] or the clinic. She states that she does not have an appointment with the clinic until March 01. 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 fever, nausea, vomiting, diarrhea, chest pain, shortness of breath, cough. 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 other past medical history. 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 allergies to medications. - Related Data Previous Rx's Medication Instructions Recorded Last Taken Type Diphenhydramine HCl [Benadryl 25 mg PO Q6H #30 tablet 10/12/16 Unknown Rx Allergy TAB] Acetaminophen/Codeine [Tylenol 1 tab PO Q6H PRN #20 tab 03/10/17 Unknown Rx /Codeine # 3 tab] Cephalexin [Keflex] 500 mg PO QID #40 capsule 03/10/17 Unknown Rx Clindamycin [Clindamycin CAP] 300 mg PO Q8H #21 cap 01/17/19 Unknown Rx Ibuprofen [Motrin] 800 mg PO Q8HR #30 tablet 01/17/19 Unknown Rx Sulfamethoxazole/Trimethoprim 1 each PO BID #20 tablet 01/17/19 Unknown Rx [Bactrim DS TAB] Cyclobenzaprine [Flexeril 10mg] 10 mg PO Q12H PRN #14 tablet 03/04/19 Unknown Rx Ibuprofen [Motrin] 800 mg PO Q8HR PRN #12 tablet 03/04/19 Unknown Rx Fexofenadine/Pseudoephedrine 1 each PO DAILY #15 tab.er.24h 08/04/19 Unknown Rx [Ana-D 24 Hour Tablet] Ibuprofen [Motrin 600 MG tab] 600 mg PO Q8H PRN #30 tablet 08/04/19 Unknown Rx guaiFENesin ER [Mucinex ER] 600 mg PO Q12H #20 tablet.er 08/04/19 Unknown Rx predniSONE [Deltasone] 50 mg PO QDAY #5 tab 08/04/19 Unknown Rx Azithromycin [Zithromax Z-SIDDHARTHA] 250 mg PO DAILY 1 Days tab 02/12/20 Unknown Rx Clindamycin [Clindamycin CAP] 150 mg PO Q8HR #21 capsule 02/12/20 Unknown Rx HYDROcodone/APAP 5-325 [Woodbourne 1 each PO Q6HR PRN #14 tablet 02/12/20 Unknown Rx 5/325] Misoprostol [Cytotec] 100 mcg PO QID #8 tablet 02/12/20 Unknown Rx Ondansetron [Zofran Odt] 4 mg PO Q8HR PRN #14 tab.rapdis 02/12/20 Unknown Rx Methylergonovine [Methergine] 0.2 mg PO Q8HR #3 tablet 02/16/20 Unknown Rx Allergies Allergy/AdvReac Type Severity Reaction Status Date / Time No Known Allergies Allergy Verified 02/16/20 00:40 ED Review of Systems ROS: Stated complaint: ABDOMINAL PAIN/HEAVY BLEEDING Other details as noted in HPI Comment: All other systems reviewed and negative ED Past Medical Hx - Past Medical History Hx Hypertension: Yes Hx Congestive Heart Failure: No Hx Diabetes: No Hx Deep Vein Thrombosis: No Hx Liver Disease: No Hx Renal Disease: No Hx Sickle Cell Disease: No Hx Seizures: No Hx Asthma: No Hx COPD: No Hx HIV: No Additional medical history: Vaginal delivery x 2 - Surgical History Additional Surgical History: cyst on right buttock. - Social History Smoking Status: Never Smoker Substance Use Type: None - Medications Home Medications: Home Medications Medication Instructions Recorded Confirmed Last Taken Type Diphenhydramine HCl [Benadryl 25 mg PO Q6H #30 tablet 10/12/16 Unknown Rx Allergy TAB] Acetaminophen/Codeine [Tylenol 1 tab PO Q6H PRN #20 tab 03/10/17 Unknown Rx /Codeine # 3 tab] Cephalexin [Keflex] 500 mg PO QID #40 capsule 03/10/17 Unknown Rx Clindamycin [Clindamycin CAP] 300 mg PO Q8H #21 cap 01/17/19 Unknown Rx Ibuprofen [Motrin] 800 mg PO Q8HR #30 tablet 01/17/19 Unknown Rx Sulfamethoxazole/Trimethoprim 1 each PO BID #20 tablet 01/17/19 Unknown Rx [Bactrim DS TAB] Cyclobenzaprine [Flexeril 10mg] 10 mg PO Q12H PRN #14 tablet 03/04/19 Unknown Rx Ibuprofen [Motrin] 800 mg PO Q8HR PRN #12 tablet 03/04/19 Unknown Rx Fexofenadine/Pseudoephedrine 1 each PO DAILY #15 tab.er.24h 08/04/19 Unknown Rx [Ana-D 24 Hour Tablet] Ibuprofen [Motrin 600 MG tab] 600 mg PO Q8H PRN #30 tablet 08/04/19 Unknown Rx guaiFENesin ER [Mucinex ER] 600 mg PO Q12H #20 tablet.er 08/04/19 Unknown Rx predniSONE [Deltasone] 50 mg PO QDAY #5 tab 08/04/19 Unknown Rx Azithromycin [Zithromax Z-SIDDHARTHA] 250 mg PO DAILY 1 Days tab 02/12/20 Unknown Rx Clindamycin [Clindamycin CAP] 150 mg PO Q8HR #21 capsule 02/12/20 Unknown Rx HYDROcodone/APAP 5-325 [[place] 1 each PO Q6HR PRN #14 tablet 02/12/20 Unknown Rx 5/325] Misoprostol [Cytotec] 100 mcg PO QID #8 tablet 02/12/20 Unknown Rx Ondansetron [Zofran Odt] 4 mg PO Q8HR PRN #14 tab.rapdis 02/12/20 Unknown Rx Methylergonovine [Methergine] 0.2 mg PO Q8HR #3 tablet 02/16/20 Unknown Rx ED Physical Exam - General Limitations: No Limitations General appearance: alert, in no apparent distress - Head Head exam: Present: atraumatic, normocephalic - Eye Eye exam: Present: normal appearance - ENT ENT exam: Present: mucous membranes moist - Respiratory Respiratory exam: Present: normal lung sounds bilaterally. Absent: respiratory distress, wheezes, rales, rhonchi, stridor, chest wall tenderness, accessory muscle use, decreased breath sounds, prolonged expiratory - Cardiovascular Cardiovascular Exam: Present: regular rate, normal rhythm, normal heart sounds. Absent: systolic murmur, diastolic murmur, rubs, gallop - GI/Abdominal GI/Abdominal exam: Present: soft, tenderness (suprapubic), normal bowel sounds. Absent: distended, guarding, rebound, rigid - Neurological Exam Neurological exam: Present: alert, oriented X3 - Psychiatric Psychiatric exam: Present: normal affect, normal mood - Skin Skin exam: Present: warm, dry, intact ED Course Vital Signs 02/15/20 02/15/20 21:25 23:44 Temperature 98.7 F Pulse Rate 96 H 67 Respiratory 18 18 Rate Blood Pressure 149/107 Blood Pressure 127/78 [Right] O2 Sat by Pulse 98 100 Oximetry - Consultations Consultation #1: 02/16/20 00:[address] Pinedo, [employer] discussed patient history and results, recommended to give patient IM Methergine now, will see patient in her outpatient office in [place] at 9:45 AM, advised to send patient home on Methergine p.o. every 6-8 hours for a total of 3 doses, also advised to discuss with patient that she would also need to follow-up with the clinic ED Medical Decision Making - Lab Data Result diagrams: 02/15/20 21:39 02/15/20 21:39 Lab Results 02/15/20 02/15/20 02/15/20 Range/Units 21:39 21:39 21:53 WBC 8.2 (4.5-11.0) K/mm3 RBC 3.73 (3.65-5.03) M/mm3 Hgb 10.9 (10.1-14.3) gm/dl Hct 32.5 (30.3-42.9) % MCV 87 (79-97) fl MCH 29 (28-32) pg MCHC 33 (30-34) % RDW 16.3 H (13.2-15.2) % Plt Count 309 (140-440) K/mm3 Lymph % (Auto) 25.0 (13.4-35.0) % Dillon % (Auto) 5.7 (0.0-7.3) % Eos % (Auto) 1.0 (0.0-4.3) % Baso % (Auto) 1.0 (0.0-1.8) % Lymph # 2.0 (1.2-5.4) K/mm3 Dillon # 0.5 (0.0-0.8) K/mm3 Eos # 0.1 (0.0-0.4) K/mm3 Baso # 0.1 (0.0-0.1) K/mm3 Seg Neutrophils % 67.3 (40.0-70.0) % Seg Neutrophils # 5.5 (1.8-7.7) K/mm3 Sodium 138 (137-145) mmol/L Potassium 4.2 (3.6-5.0) mmol/L Chloride 101.8 (98-107) mmol/L Carbon Dioxide 21 L (22-30) mmol/L Anion Gap 19 mmol/L BUN 11 (7-17) mg/dL Creatinine 0.8 (0.7-1.2) mg/dL Estimated GFR > 60 ml/min BUN/Creatinine Ratio 14 % Glucose 105 H (65-100) mg/dL Calcium 9.1 (8.4-10.2) mg/dL Total Bilirubin 0.20 (0.1-1.2) mg/dL AST 11 (5-40) units/L ALT 10 (7-56) units/L Alkaline Phosphatase 38 (35-129) units/L Total Protein 7.2 (6.3-8.2) g/dL Albumin 4.1 (3.9-5) g/dL Albumin/Globulin Ratio 1.3 % HCG, Quant 4696 H (0-4) mIU/mL - Radiology Data Radiology results: report reviewed Ultrasound pelvis Interpreted by Leeanne Abraham MD Findings: Uterus present no significant abnormality, 13.2 x 7 x 6.4 cm, endometrial complex remains thickened and mildly heterogeneous, measuring 13 mm. This is markedly improved compared with the prior recent ultrasound in which the endometrium measured 4.7 cm. A 2.5 cm solid mass is again noted along the anterior myometrium consistent with a small fibroid. There is a new small hypoechoic mass along the posterior myometrium measuring 1.6 cm possibly another small fibroid. Right adnexa no significant ovarian cyst or mass normal color Doppler flow 1.3 cm small cyst identified within the right ovary. Left adnexa no significant ovarian cyst or mass. Normal color Doppler blood flow. Trace free fluid is present in the posterior cul-de-sac. Impression: The endometrium remains abnormally thickened, measuring 13 mm. However this is markedly improved compared to the prior ultrasound of 02/12/2020 in which the endometrial complex measured 47 mm in thickness. No significant adnexal mass - Medical Decision Making Patient is a 34-year-old female presents emergency room with complaints of heavy vaginal bleeding and lower abdominal cramping that began today. She states that she is having to change her pad approximately every 20 to 30 minutes. Patient states on 02/09/2020 she had an at [facility] in [place]. Patient was evaluated in the emergency department on 02/12/2020 and had ultrasound performed at that time which showed thickened endometrium secondary to hemorrhage versus retained products [employer] was consulted at that time, and patient was discharged with Wood[place], misoprostol, Zofran. She states that she completed the medication and that the bleeding had significantly decreased but then began to feel the symptoms again today. She did not follow-up with an [facility]ER or the clinic. She states that she does not have an appointment with the clinic until March 01. 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 fever, nausea, vomiting, diarrhea, chest pain, shortness of breath, cough. 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 other past medical history. 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 allergies to medications. Initial triage vitals with mild elevation of blood pressure which improved upon repeat to normal. On exam patient has suprapubic tenderness to palpation, no guarding, no rebound, no rigidity, no distention, no peritoneal signs. H&H are normal. hCG quant is 4696, no previous quant for comparison. Patient is Rh+. pelvic US: The endometrium remains abnormally thickened, measuring 13 mm. However this is markedly improved compared to the prior ultrasound of 02/12/2020 in which the endometrial complex measured 47 mm in thickness. No significant adnexal mass. Patient given 1 L fluids, morphine, Zofran and symptoms improved. Discussed case with Dr. Vincent, ER attending who recommended discussing case with juvenile detention officer [employer]. Spoke to Dr. Pinedo, [employer] discussed patient history and results, recommended to give patient IM Methergine 0.2 mg now, will see patient in her outpatient office in [place] at 9:45 AM, advised to send patient home on Methergine p.o. every 6-8 hours for a total of 3 doses, also advised to discuss with patient that she would also need to follow-up with the clinic. Discussed all results with patient and patient given ultrasound report to take to [facility] [facility]. Patient given prescription for Methergine. Patient given Dr. Pinedo's information to follow-up in her office on 02/16/2020 at 9:45 AM. advised pt Please take medication as prescribed. May take ibuprofen as needed for discomfort. May take the Woodbourne you are prescribed as needed. Follow-up with Dr. Pinedo, P[employer] [facility]ER at 9:45 AM in the morning (02/16/2020). Please also follow-up with the clinic as soon as possible. Return to the emergency room for any new or worsening symptoms. - Differential Diagnosis complication, menorrhagia, retained products of conception Critical care attestation.: If time is entered above; I have spent that time in minutes in the direct care of this critically ill patient, excluding procedure time. ED Disposition Clinical Impression: Suprapubic cramping, Post- complication Menorrhagia Qualifiers: Menorrhagia type: with irregular cycle Qualified Code(s): N92.1 - Excessive and frequent menstruation with irregular cycle Disposition: DC-01 TO HOME OR SELFCARE Is pt being admited?: No Does the pt Need Aspirin: No Condition: Stable Instructions: Menorrhagia (ED) Additional Instructions: Please take medication as prescribed. May take ibuprofen as needed for discomfort. May take the Woodbourne you are prescribed as needed. Follow-up with Dr. Pinedo, P[employer] [facility]ER at 9:45 AM in the morning (02/16/2020). Please also follow- up with the clinic as soon as possible. Return to the emergency room for any new or worsening symptoms. Prescriptions: Methylergonovine [Methergine] 0.2 mg PO Q8HR #3 tablet Referrals: LINH PINEDO MD [Staff Physician] - 24 Hours Time of Disposition: 00:26 Print Language: [place]ICAN CITIZEN
[2020-02-15 23:53] VITALS: BP 127/78
[2020-02-16] MEDS ORDERED: METHYLERGONOVINE MALEATE 0.2 MG/ML VIAL IM ONE (00:06)
== END 2020-02-16 01:30 | disposition home or self-care (01) ==
LOC: ED 21:18
DX: O08.9 Unspecified complication following an ectopic and molar pregnancy (principal); O26.891 Other specified pregnancy related conditions, first trimester; O16.1 Unspecified maternal hypertension, first trimester; R10.30 Lower abdominal pain, unspecified; Z79.899 Other long term (current) drug therapy; Z98.890 Other specified postprocedural states; Z3A.01 Less than 8 weeks gestation of pregnancy
CPT/HCPCS: 36415; 76856; 80053; 84702; 85025; 96372; 96374; 96375; 99284; J2210; J2270; J2405; J7030

== ENCOUNTER 2020-04-27 02:24 | Emergency (ER) | payer MEDICAID ==
[2020-04-27] MEDS ORDERED: ACETAMINOPHEN 500 MG TAB PO STA (03:13)
[2020-04-27] MEDS ORDERED: SODIUM CHLORIDE 0.9% 500 ML 500 ML IV ONE (03:13)
[2020-04-27 04:00] LABS: Basophils % (Auto) 0.4 % (0.0-1.8); Eosinophils % (Auto) 0.1 % (0.0-4.3); Hematocrit 38.9 % (30.3-42.9); Hemoglobin 12.8 gm/dl (10.1-14.3); Lymphocytes # (Auto) 1.1 K/mm3 (1.2-5.4); Lymphocytes % (Auto) 25.9 % (13.4-35.0); Mean Corpuscular HGB Conc 33 % (30-34); Mean Corpuscular Volume 85 fl (79-97); Monocytes # (Auto) 0.3 K/mm3 (0.0-0.8); Monocytes % (Auto) 6.8 % (0.0-7.3); Platelet Count 221 K/mm3 (140-440); Red Blood Count 4.58 M/mm3 (3.65-5.03); Red Cell Distribution Width 16.3 % (13.2-15.2)
[2020-04-27 04:10] LABS: INR 0.97 (0.87-1.13)
[2020-04-27 04:21] LABS: Alanine Aminotransferase 11 units/L (7-56); Albumin 4.6 g/dL (3.9-5); BUN/Creatinine Ratio 15; Blood Urea Nitrogen 12 mg/dL (7-17); Calcium 8.9 mg/dL (8.4-10.2); Hemolysis Index 1
[2020-04-27 04:47] LABS: Bacteria,Urine 1+ /HPF (Negative); Bilirubin,Urine NEG (Negative); Blood,Urine LG (Negative); Color,Urine Red (Yellow); Mucus,Urine 3+ /HPF; Urobilinogen,Urine < 2.0 mg/dL (<2.0)
[2020-04-27 04:56] LABS: RBC,Urine > 182.0 /HPF (0.0-6.0)
--- NOTE | 2020-04-27 05:18 | XRay Report ---
CHEST 1 VIEW 5:04 AM INDICATION / CLINICAL INFORMATION: Fever, cough, body aches and MARCO A. Started vomiting yesterday. COMPARISON: 04/25/20. FINDINGS: SUPPORT DEVICES: None. HEART / MEDIASTINUM: The heart size and pulmonary vasculature are normal area LUNGS / PLEURA: No significant pulmonary or pleural abnormality. No pneumothorax. ADDITIONAL FINDINGS: No significant additional findings. IMPRESSION: No acute abnormality or significant change. I see no evidence of pneumonia. Signer Name: Indio Avelar MD Signed: 04/27/2020 5:13 AM Workstation Name: [id number]
[2020-04-27] MEDS ORDERED: KETOROLAC 30 MG/1 ML INJ IV ONE (06:39)
[2020-04-27] MEDS ORDERED: IPRATROPIUM/ALBUTEROL SULFATE 3 ML AMPUL.NEB IH ONE (06:39)
--- NOTE | 2020-04-27 06:42 | Emergency Department Report ---
HPI - General Chief Complaint: Dyspnea/Respdistress Time Seen by Provider: 04/27/20 06:29 - HPI HPI: This is a 34-year-old -[place] female presents to the emergency department with a complaint of some fever, nausea, vomiting, body aches, coughing and shortness of breath. The patient was seen here 3 days ago for similar symptoms and was discharged home with the diagnosis of suspected Covid and viral syndrome. Patient says that she was told to come back if the shortness of breath worsened or if she started having vomiting and "I started vomiting 2 days ago." The patient has been isolating herself and/or quarantining since her last visit here but has not been tested for Covid 19. She has a past medical history of hypertension. No primary care physician. She has been using the albuterol inhaler that she was prescribed without any relief. ED Past Medical Hx - Past Medical History Previous Medical History?: Yes Hx Hypertension: Yes Hx Congestive Heart Failure: No Hx Diabetes: No Hx Deep Vein Thrombosis: No Hx Liver Disease: No Hx Renal Disease: No Hx Sickle Cell Disease: No Hx Seizures: No Hx Asthma: No Hx COPD: No Hx HIV: No Additional medical history: Vaginal delivery x 2 - Surgical History Past Surgical History?: Yes Additional Surgical History: cyst on right buttock. - Social History Smoking Status: Never Smoker Substance Use Type: None - Medications Home Medications: Home Medications Medication Instructions Recorded Confirmed Last Taken Type Misoprostol [Cytotec] 100 mcg PO QID #8 tablet 02/12/20 Unknown Rx Methylergonovine [Methergine] 0.2 mg PO Q8HR #3 tablet 02/16/20 Unknown Rx Acetaminophen [Non-Aspirin Extra 500 mg PO Q6HR PRN #30 tablet 04/25/20 Unknown Rx Strength] Albuterol Sulfate [Proair 90 mcg IH Q4HR PRN #2 aer.pow.ba 04/25/20 Unknown Rx Respiclick] Ondansetron [Zofran ODT TAB] 4 mg PO Q8HR PRN #15 tab.rapdis 04/27/20 Unknown Rx ED Review of Systems ROS: Stated complaint: VOMITING Other details as noted in HPI Comment: All other systems reviewed and negative Constitutional: chills, fever Eyes: denies: eye pain, vision change ENT: denies: ear pain, throat pain Respiratory: cough, shortness of breath Cardiovascular: denies: palpitations, edema Gastrointestinal: nausea, vomiting. denies: abdominal pain Genitourinary: denies: dysuria, discharge Musculoskeletal: denies: back pain, arthralgia Skin: denies: rash, lesions Neurological: denies: headache, weakness Physical Exam - Physical Exam Vital Signs: Vital Signs 04/27/20 04/27/20 02:52 02:54 Temperature 99.6 F 101.0 F H Pulse Rate 107 H 108 H Respiratory 20 20 Rate Blood Pressure 155/92 O2 Sat by Pulse 99 99 Oximetry Physical Exam: GENERAL: The patient is well-developed well-nourished. HENT: Normocephalic. Atraumatic. Patient has moist mucous membranes. EYES: Extraocular motions are intact. NECK: Supple. Trachea is midline. CHEST/LUNGS: Clear to auscultation. There is no respiratory distress noted. HEART/CARDIOVASCULAR: Regular. There is mild tachycardia. There is no murmur. ABDOMEN: Abdomen is soft, nontender. Patient has normal bowel sounds. SKIN: Skin is warm and dry. NEURO: The patient is awake, alert, and oriented. The patient is cooperative. The patient has no focal neurologic deficits. Normal speech. MUSCULOSKELETAL: There is no tenderness or deformity. There is no evidence of acute injury. ED Course Vital Signs 04/27/20 04/27/20 02:52 02:54 Temperature 99.6 F 101.0 F H Pulse Rate 107 H 108 H Respiratory 20 20 Rate Blood Pressure 155/92 O2 Sat by Pulse 99 99 Oximetry ED Medical Decision Making - Lab Data Result diagrams: 04/27/20 03:31 04/27/20 03:31 - Radiology Data Radiology results: image reviewed interpreted by me: Chest x-ray does not show any acute process. There are no pleural effusions, obvious pneumonia and there is no pneumothorax. - Medical Decision Making This patient presents to the emergency department with a complaint of i ntermittent fever, body aches, cough, nausea and vomiting. She was just recently here and diagnosed with a URI and suspected COVID-19. Patient returns secondary to development of some nausea and vomiting. However the patient denies having any nausea at the time of my initial evaluation. She was given some IV fluid resuscitation, a DuoNeb breathing treatment and Tylenol and Toradol for fever and body aches. She was reevaluated multiple times over multiple hours and is feeling improved. There has been no return of her nausea and vomiting. She appears safe for discharge home at this time. Once again the patient has been diagnosed with a nonspecific viral syndrome, but given the current pandemic she is at least moderate suspicion for Covid 19. She has been instructed to stay away from those that are chronically ill, immunocompromised or elderly, and has been instructed to seek outpatient Covid 19 testing. She will return to the emergency department with any worsening of her symptoms or any acute distress. Critical Care Time: No Critical care attestation.: If time is entered above; I have spent that time in minutes in the direct care of this critically ill patient, excluding procedure time. ED Disposition Clinical Impression: Suspected 2019 novel coronavirus infection, Shortness of breath Nausea & vomiting Qualifiers: Vomiting type: unspecified Vomiting Intractability: non-intractable Qualified Code(s): R11.2 - Nausea with vomiting, unspecified Disposition: TO HOME OR SELFCARE Is pt being admited?: No Condition: Stable Instructions: COVID-19, Acute Nausea and Vomiting (ED), Dyspnea (ED) Additional Instructions: Your set of symptoms appear consistent with a viral syndrome. Given this current pandemic, there is at least a moderate suspicion that you have COVID-19. Unfortunately, I am unable to test you for this at this time. You should quarantine/self isolate for at least 14 days from the start of your symptoms. I recommend that you seek outpatient testing of Covid 19. This can be done at some urgent cares, some primary care offices, and there should be a list of testing facilities through the [facility]. Please stay away from anyone who is chronically ill, elderly, or immunocompromised. Return to the emergency department with any worsening of your symptoms or with any acute distress. You can take Tylenol every 4-6 hours and ibuprofen every 6-8 hours, using the dosing on the back of the bottle, as needed for any fever or body aches. Increase your oral rehydration. Prescriptions: Ondansetron [Zofran ODT TAB] 4 mg PO Q8HR PRN #15 tab.rapdis PRN Reason: Nausea Referrals: STEPHANIE CORONA MD [Staff Physician] - 3-5 Days [facility] [Provider Group] - 3-5 Days Time of Disposition: 10:04
[2020-04-27] MEDS ORDERED: SODIUM CHLORIDE 0.9% 500 ML 500 ML ONE (07:59)
[2020-04-27] MEDS ORDERED: ACETAMINOPHEN 500 MG TAB ONE (07:59)
[2020-04-27 12:46] VITALS: BP 122/72
== END 2020-04-27 12:30 | disposition home or self-care (01) ==
LOC: ED 02:24
DX: R06.02 Shortness of breath (principal); Z20.828 Contact with and (suspected) exposure to other viral communicable diseases; R50.9 Fever, unspecified; R11.2 Nausea with vomiting, unspecified; R05 Cough; I10 Essential (primary) hypertension; Z98.890 Other specified postprocedural states; Z79.899 Other long term (current) drug therapy
CPT/HCPCS: 36415; 71045; 80053; 81001; 82140; 82805; 84703; 85025; 85610; 87040; 87086; 93005; 94640; 96374; 99285; J1885; J7040

== ENCOUNTER 2021-01-14 09:14 | Emergency (ER) | payer MEDICAID ==
[2021-01-14 09:27] VITALS: BP 137/95
[2021-01-14] MEDS ORDERED: IBUPROFEN 800 MG TAB PO ONE (10:38)
[2021-01-14] MEDS ORDERED: FLUORESCEIN 1 MG STRIP OP ONE (10:38)
[2021-01-14] MEDS ORDERED: TETRACAINE 0.5% OPHTH SOLN 4ML OU STA (10:38)
--- NOTE | 2021-01-14 10:39 | Emergency Department Report ---
ED Eye Problem HPI - General Chief complaint: Eye Problems Stated complaint: ALLERGIC REACTION/ITCHY EYES Time Seen by Provider: 01/14/21 10:25 Source: patient Mode of arrival: Ambulatory Limitations: No Limitations - History of Present Illness Initial comments: Patient presents to the ER today with complaints of bilateral eye redness and drainage and soreness. Patient states that his symptoms started Wednesday night. She states started with the right eye it was very itchy. She states that she woke up this morning with both eyes red, sore and with increased tearing and pus drainage but no matting. She states that she took [id number] allergy medications and Benadryl but it did not provide much relief. She states that she had a false lashes placed Wednesday but at the time she did not feel anything get into her eye and nor she having any symptoms at the time. She did remove the eyelashes after her symptoms started to progress. 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 injury to the eye. She reports mild blurry vision mainly from the right eye. She does not wear glasses or contacts. 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 grinding or welding MD chief complaint: eye pain, eye redness -: Gradual (2), days(s) (2) - Related Data Previous Rx's Medication Instructions Recorded Last Taken Type Ibuprofen [Motrin] 800 mg PO Q8HR PRN #30 tablet 01/14/21 Unknown Rx Tobramycin/Dexamethasone [Tobradex 2 drop OP Q4HR 7 Days #1 drops.susp 01/14/21 Unknown Rx Eye Drops 0.3/0.1%] Allergies Allergy/AdvReac Type Severity Reaction Status Date / Time No Known Allergies Allergy Verified 04/30/20 15:57 ED Review of Systems ROS: Stated complaint: ALLERGIC REACTION/ITCHY EYES Other details as noted in HPI Comment: All other systems reviewed and negative Eyes: eye pain, eye discharge, vision change ENT: denies: ear pain, throat pain Respiratory: denies: cough, shortness of breath, wheezing Cardiovascular: denies: chest pain, palpitations Endocrine: no symptoms reported Gastrointestinal: denies: abdominal pain, nausea, diarrhea Musculoskeletal: denies: back pain, joint swelling, arthralgia Skin: pruritus. denies: rash, lesions, change in color, change in hair/nails, other Neurological: denies: headache, weakness, paresthesias Psychiatric: denies: anxiety, depression, auditory hallucinations, visual hallucinations, homicidal thoughts, suicidal thoughts Hematological/Lymphatic: denies: easy bleeding, easy bruising ED Past Medical Hx - Past Medical History Hx Hypertension: Yes Hx Congestive Heart Failure: No Hx Diabetes: No Hx Deep Vein Thrombosis: No Hx Liver Disease: No Hx Renal Disease: No Hx Sickle Cell Disease: No Hx Seizures: No Hx Asthma: No Hx COPD: No Hx HIV: No Additional medical history: Vaginal delivery x 2 - Surgical History Additional Surgical History: cyst on right buttock. - Social History Smoking Status: Never Smoker Substance Use Type: Alcohol - Medications Home Medications: Home Medications Medication Instructions Recorded Confirmed Last Taken Type Ibuprofen [Motrin] 800 mg PO Q8HR PRN #30 tablet 01/14/21 Unknown Rx Tobramycin/Dexamethasone [Tobradex 2 drop OP Q4HR 7 Days #1 drops.susp 01/14/21 Unknown Rx Eye Drops 0.3/0.1%] ED Physical Exam - General Limitations: No Limitations General appearance: alert, in no apparent distress, obese - Head Head exam: Present: atraumatic, normocephalic, normal inspection - Eye Eye exam: Present: PERRL, EOMI, conjunctival injection (Moderate), periorbital swelling (Mild bilaterally without any associated cellulitis). Absent: periorbital tenderness Pupils: Present: other (Manzo lamp exam shows no corneal abrasions, dendrites all ulcerations) - Expanded Eye Exam Expanded Eyelids: Swelling: Bilateral (Mild) Pupils: Regular, Round: Bilateral Sclera/Conjunctival: Injection: Bilateral (With associated small amount of mucousy discharge along the eyelids) Anterior chamber: Normal Inspection: Bilateral Posterior chamber: Deferred: Bilateral Visual acuity (R) = 20/: 15 (20/20 both eye ) Visual acuity (L) = 20/: 20 With correction: No - Neck Neck exam: Present: normal inspection, full ROM - Respiratory Respiratory exam: Present: normal lung sounds bilaterally. Absent: respiratory distress - Neurological Exam Neurological exam: Present: alert, oriented X3, CN II-XII intact, normal gait - Psychiatric Psychiatric exam: Present: normal affect, normal mood - Skin Skin exam: Present: intact ED Course Vital Signs 01/14/21 01/14/21 09:20 10:42 Temperature 99.3 F Pulse Rate 82 Respiratory 20 10 L Rate Blood Pressure 137/95 O2 Sat by Pulse 100 Oximetry ED Medical Decision Making - Medical Decision Making 1109: Physical exam suggest bilateral bacterial conjunctivitis. Manzo lamp exam unremarkable. No foreign body noted. Visual acuity normal. No periorbital cellulitis. Patient is well experienced, not toxic and is not in any acute distress. Discussed suspected diagnosis and treatment plan with patient. Patient stable at time of discharge. Critical care attestation.: If time is entered above; I have spent that time in minutes in the direct care of this critically ill patient, excluding procedure time. ED Disposition Clinical Impression: Bacterial conjunctivitis of both eyes Disposition: DC- TO HOME OR SELFCARE Is pt being admited?: No Does the pt Need Aspirin: No Condition: Stable Instructions: Bacterial Conjunctivitis, Adult, [id number] Additional Instructions: Use antibiotics as prescribed. Take the Motrin as prescribed. Recommend that you wash your hands as often as possible to prevent any further spread to the rest of your household. Follow-up closely with your primary care doctor. Return to the ER if your symptoms changes or worsens in any way. Prescriptions: Ibuprofen [Motrin] 800 mg PO Q8HR PRN #30 tablet PRN Reason: pain Tobramycin/Dexamethasone [Tobradex Eye Drops 0.3/0.1%] 2 drop OP Q4HR 7 Days #1 drops.susp Referrals: PRIMARY CARE, [Primary Care Provider] - 3-5 Days Forms: Work/School Release Form(ED) Time of Disposition: 11:00
== END 2021-01-14 11:10 | disposition home or self-care (01) ==
LOC: ED 09:14
DX: H10.32 Unspecified acute conjunctivitis, left eye (principal); I10 Essential (primary) hypertension; Z79.899 Other long term (current) drug therapy
CPT/HCPCS: 99283

== ENCOUNTER 2021-05-01 19:24 | Emergency (ER) | payer MEDICAID ==
[2021-05-01] MEDS ORDERED: ACETAMINOPHEN 500 MG TAB PO ONE (21:56)
[2021-05-01] MEDS ORDERED: DICYCLOMINE 20 MG TAB PO ONE (21:56)
[2021-05-01] MEDS ORDERED: ONDANSETRON 4 MG ODT TAB PO ONE (21:56)
--- NOTE | 2021-05-01 22:00 | Emergency Department Report ---
ED General Adult HPI - General Chief complaint: Nausea/Vomiting/Diarrhea Stated complaint: STOMACH PAIN/DIARRHEA/HEADACHE Time Seen by Provider: 05/01/21 21:35 Source: patient Mode of arrival: Ambulatory Limitations: No Limitations - History of Present Illness Initial comments: 35-year-old female patient with history of COVID-19 infection last year presents to the emergency department with complaints of headache, diffuse lower abdominal pain, nausea, and diarrhea starting 3 days ago. No preceding fall, trauma, or injury. Patient has experienced 2 episodes of diarrhea in the last 24 hours. No known sick contacts. No current steroid or antibiotic use. No recent travel. Denies fever, chills, seizure, neck stiffness, rash, mental status changes, vomiting, black/bloody stools. Denies all other complaints at this time. - Related Data Previous Rx's Medication Instructions Recorded Last Taken Type Ibuprofen [Motrin] 800 mg PO Q8HR PRN #30 tablet 01/14/21 Unknown Rx Tobramycin/Dexamethasone [Tobradex 2 drop OP Q4HR 7 Days #1 drops.susp 01/14/21 Unknown Rx Eye Drops 0.3/0.1%] Pyridoxine HCl (Vitamin B6) 25 mg PO TID #20 tablet 05/02/21 Unknown Rx [Pyridoxine HCl] Allergies Allergy/AdvReac Type Severity Reaction Status Date / Time No Known Allergies Allergy Verified 04/30/20 15:57 ED Review of Systems ROS: Stated complaint: STOMACH PAIN/DIARRHEA/HEADACHE Other details as noted in HPI Other: GENERAL: Negative for fever, chills, weight change, anorexia, fatigue. ENT: Negative for ear pain, difficulty hearing, sore throat, nasal congestion, epistaxis. CARDIOVASCULAR: Negative for chest pain, palpitations, lower extremity swelling. PULMONARY: Negative for cough, dyspnea, wheezing, orthopnea, cyanosis. GASTROINTESTINAL: Positive for abdominal pain, nausea, diarrhea. MUSCULOSKELETAL: Positive for myalgias. NEUROLOGICAL: Positive for headache. INTEGUMENTARY: Negative for erythema, rash, diaphoresis, laceration, ecchymosis. HEMATOLOGICAL: Negative for hemoptysis, hematemesis, hematochezia, hematuria. PSYCHIATRIC: Negative for hallucinations, suicidal ideation, homicidal ideation, anxiety, depression. ED Past Medical Hx - Past Medical History Previous Medical History?: Yes Hx Hypertension: Yes Hx Congestive Heart Failure: No Hx Diabetes: No Hx Deep Vein Thrombosis: No Hx Liver Disease: No Hx Renal Disease: No Hx Sickle Cell Disease: No Hx Seizures: No Hx Asthma: No Hx COPD: No Hx HIV: No Additional medical history: Vaginal delivery x 2 - Surgical History Past Surgical History?: Yes Additional Surgical History: cyst on right buttock. - Social History Smoking Status: Never Smoker Substance Use Type: None - Medications Home Medications: Home Medications Medication Instructions Recorded Confirmed Last Taken Type Ibuprofen [Motrin] 800 mg PO Q8HR PRN #30 tablet 01/14/21 Unknown Rx Tobramycin/Dexamethasone [Tobradex 2 drop OP Q4HR 7 Days #1 drops.susp 01/14/21 Unknown Rx Eye Drops 0.3/0.1%] Pyridoxine HCl (Vitamin B6) 25 mg PO TID #20 tablet 05/02/21 Unknown Rx [Pyridoxine HCl] ED Physical Exam - General Limitations: No Limitations - Other Other exam information: General: Awake and alert. No acute distress. Head: Atraumatic, normocephalic. Eyes: EOMI. Pupils are equal and round. Normal sclera and conjunctiva. ENT: Oral mucosa is moist. Normal pharyngeal exam. Neck: Supple. No lymphadenopathy. Pulmonary: No respiratory distress. Clear to auscultation bilaterally. Cardiac: Regular rate and rhythm. Pulses are palpable and equal bilaterally. No lower extremity cyanosis or edema. Skin: Warm and dry. No rashes. Abdomen: Soft, non-tender, non-protuberant. No guarding, rigidity, or rebound. Bowel sounds are normal. No organomegaly or masses noted. Back: Normal alignment. No CVA tenderness. Extremities: Symmetrical. Full range of motion intact. Neurological: Alert and oriented, appropriately interactive, no focal deficits. Psych: Cooperative. Appropriate mood and affect. Speech is evenly metered. Thoughts are logically construed. ED Course Vital Signs 05/01/21 05/01/21 05/01/21 21:21 22:13 23:13 Temperature 98.5 F Pulse Rate 83 Respiratory 18 19 19 Rate Blood Pressure 148/80 Blood Pressure [Left] O2 Sat by Pulse 100 Oximetry 05/02/21 03:30 Temperature 98.3 F Pulse Rate 60 Respiratory 18 Rate Blood Pressure Blood Pressure 137/78 [Left] O2 Sat by Pulse 100 Oximetry ED Medical Decision Making - Lab Data Result diagrams: 05/01/21 22:57 07/08/21 22:57 - Radiology Data US TRANSVAGINAL - IMPRESSION: No intrauterine gestational sac. HCG is only 200 and findings could still be related to early . Can trend beta hCGs and obtain follow-up sonograms as indicated. - Medical Decision Making Differential diagnosis including but not limited to: dehydration, electrolyte abnormality, hypoglycemia, pancreatitis, cholecystitis, appendicitis, urinary tract infection, On reevaluation, patient remains stable and symptoms have improved. Repeat abdominal exam is benign. Qualitative test is positive. Remainder of labs are unremarkable. Urinalysis without evidence of infection. Blood type is O+. Baseline beta-hCG is 200 without sonographic evidence of intrauterine , likely due to very early gestational age. Patient is afebrile, no vaginal bleeding, pain is controlled. No clinical indication for further diagnostic work-up on an emergent basis at this time. Patient will be discharged home with appropriate symptomatic treatment and referred to investigator internal revenue for close outpatient follow-up. Patient expressed understanding and is agreeable to plan of care. care measures discussed. Strict return precautions provided Repeat exam is unremarkable and benign. History, exam, diagnostic testing, and current condition do not suggest worrisome pathology to warrant further testing, continued ED treatment, admission, or surgical evaluation at this point. Given the low probability of a significant medical illness, it would be more likely to result in harm than benefit to perform further testing at this stage. Discussed findings, presumptive diagnosis, need for follow-up and specific signs/symptoms that should prompt immediate return to the emergency department. Instructions were explained in detail to the patient in addition to giving written discharge information. Patient expressed understanding and was given the opportunity to ask questions, all of which were satisfactorily answered prior to discharge home. Critical care attestation.: If time is entered above; I have spent that time in minutes in the direct care of this critically ill patient, excluding procedure time. ED Disposition Clinical Impression: Qualifiers: Weeks of gestation: unspecified Qualified Code(s): Z34.90 - Encounter for supervision of normal , unspecified, unspecified trimester Disposition: DC-01 TO HOME OR SELFCARE Is pt being admited?: No Does the pt Need Aspirin: No Condition: Stable Instructions: Care Additional Instructions: Take Pyridoxine as directed for nausea/intestinal discomfort. Take [id number] vitamins as directed. Please avoid smoking, drugs, caffeine, and alcohol. Eat a well-balanced diet. Do not eat shellfish. Drink plenty of fluids. Follow up with investigator internal revenue this week. Call today to schedule an appointment. See referral information below. Do not take anything except Tylenol for pain without consulting your [facility]. Return to the Emergency Department for severe abdominal pain, loss of fluid, vaginal bleeding or any other concerns. Prescriptions: Pyridoxine HCl (Vitamin B6) [Pyridoxine HCl] 25 mg PO TID #20 tablet Referrals: [facility] [Provider Group] - 3-5 Days Time of Disposition: 03:15
[2021-05-01 22:30] LABS: HCG Qualitative,Urine Positive (Negative)
[2021-05-01 22:34] LABS: Bilirubin,Urine NEG (Negative); Blood,Urine NEG (Negative); Color,Urine Yellow (Yellow); Mucus,Urine FEW /HPF; Protein,Urine <15 mg/dL mg/dL (Negative); Urobilinogen,Urine < 2.0 mg/dL (<2.0)
[2021-05-01 23:14] LABS: Basophils # (Auto) 0.1 K/mm3 (0.0-0.1); Eosinophils % (Auto) 0.6 % (0.0-4.3); Hematocrit 36.6 % (30.3-42.9); Lymphocytes # (Auto) 2.2 K/mm3 (1.2-5.4); Lymphocytes % (Auto) 25.7 % (13.4-35.0); Mean Corpuscular HGB Conc 33 % (30-34); Mean Corpuscular Volume 87 fl (79-97); Monocytes # (Auto) 0.6 K/mm3 (0.0-0.8); Platelet Count 261 K/mm3 (140-440); Red Cell Distribution Width 17.4 % (13.2-15.2)
[2021-05-01 23:33] LABS: Alanine Aminotransferase 11 units/L (7-56); Blood Urea Nitrogen 17 mg/dL (7-17); Calcium 9.1 mg/dL (8.4-10.2); Hemolysis Index 34
[2021-05-01 23:35] LABS: BUN/Creatinine Ratio 24
[2021-05-02 04:09] VITALS: BP 137/78
--- NOTE | 2021-05-02 06:59 | Ultrasound Report ---
US OB transvaginal, US OB <= 14 weeks fetus INDICATION / CLINICAL INFORMATION: abdominal pain + positive HCG. TECHNIQUE: Transabdominal and Transvaginal. COMPARISON: 02/12/2020 FINDINGS: UTERUS: Appears within normal limits. Endometrial stripe measures 9 mm. Cervix: Small nabothian cyst is seen in the cervix. GESTATIONAL SAC: No intrauterine gestational sac is visualized. ADNEXA: No significant abnormality. FREE FLUID: None. ADDITIONAL FINDINGS: None. IMPRESSION: No intrauterine gestational sac. HCG is only 200 and thus findings could still be related to early pr egnancy. Can trend BhCGs and obtain follow up sonograms as indicated. Signer Name: Nate Sexton MD Signed: 05/02/2021 2:19 AM Workstation Name: [id number]
== END 2021-05-02 03:30 | disposition home or self-care (01) ==
LOC: ED 19:24
DX: O26.891 Other specified pregnancy related conditions, first trimester (principal); I10 Essential (primary) hypertension; R10.84 Generalized abdominal pain; R11.0 Nausea; R19.7 Diarrhea, unspecified; Z3A.00 Weeks of gestation of pregnancy not specified
CPT/HCPCS: 36415; 76801; 76817; 80053; 81001; 81025; 84702; 85025; 86900; 86901; 99284; Q0162

== ENCOUNTER 2021-05-15 17:17 | Emergency (ER) | payer MEDICAID ==
--- NOTE | 2021-05-15 18:58 | Event Note ---
ED Screening Note Date of service: 05/15/21 Time: 18:57 ED Screening Note: 35-year-old female patient, first trimester, presents to the emergency department with complaints of abdominal pain, nausea, and vomiting for the last few weeks. Patient has experienced 1 episode of emesis last 24 hours. Patient found out she was earlier this month. She was prescribed an antiemetic but did not fill the prescription. She is scheduled to see her naturalist for the first time tomorrow. General: Awake, appropriately interactive, no acute distress. Neck: Supple. Full range of motion intact. Cardiovascular: Normal peripheral perfusion. Pulmonary: No respiratory distress. Patient is speaking normally without use of accessory muscles. Skin: No apparent rashes or lesions. Neurological: No facial asymmetry. Speech is clear. Follows commands. Patient is alert and oriented. Musculoskeletal: Moves all four extremities spontaneously with normal range of motion. Psych: Cooperative. Appropriate mood and affect. I have greeted and performed a focused rapid initial assessment of this patient. A comprehensive ED assessment and evaluation of the patient, analysis of all test results, and completion of the medical decision-making process will be conducted by additional ED providers. This initial assessment/diagnostic orders/clinical plan/treatment(s) is/are subject to change based on patients health status, clinical progression and re-assessment. Further treatment and workup at subsequent clinical provider's discretion. Patient/guardian urged not to elope from the ED as their condition may be serious if not clinically assessed and managed.
[2021-05-15 19:25] LABS: Basophils # (Auto) 0.1 K/mm3 (0.0-0.1); Basophils % (Auto) 1.6 % (0.0-1.8); Eosinophils % (Auto) 0.5 % (0.0-4.3); Hematocrit 36.2 % (30.3-42.9); Lymphocytes # (Auto) 1.9 K/mm3 (1.2-5.4); Lymphocytes % (Auto) 23.6 % (13.4-35.0); Mean Corpuscular HGB Conc 33 % (30-34); Mean Corpuscular Volume 87 fl (79-97); Monocytes # (Auto) 0.6 K/mm3 (0.0-0.8); Monocytes % (Auto) 7.7 % (0.0-7.3); Platelet Count 281 K/mm3 (140-440); Red Blood Count 4.18 M/mm3 (3.65-5.03); Red Cell Distribution Width 17.2 % (13.2-15.2)
[2021-05-15 19:29] LABS: Bacteria,Urine 1+ /HPF (Negative); Bilirubin,Urine NEG (Negative); Blood,Urine SM (Negative); Color,Urine Yellow (Yellow); Mucus,Urine 2+ /HPF; Protein,Urine <15 mg/dL mg/dL (Negative)
[2021-05-15 19:39] LABS: Alanine Aminotransferase 8 units/L (7-56); Albumin 3.9 g/dL (3.9-5); Blood Urea Nitrogen 11 mg/dL (7-17); Calcium 9.4 mg/dL (8.4-10.2); Hemolysis Index 9
[2021-05-15] MEDS ORDERED: ACETAMINOPHEN 500 MG TAB PO ONE (19:50)
[2021-05-15] MEDS ORDERED: PROMETHAZINE 25 MG TAB PO ONE (19:50)
[2021-05-15 19:58] LABS: BUN/Creatinine Ratio 16
--- NOTE | 2021-05-15 20:12 | Emergency Department Report ---
ED Abdominal Pain HPI - General Chief Complaint: Abdominal Pain Stated Complaint: CHEST PAIN/NAUSEA/VOMITING/BAD MIGRANE PUI?: No Source: patient Mode of arrival: Ambulatory Limitations: No Limitations - History of Present Illness Initial Comments: Patient is a A0 35-year-old -[place] female with a history of hypertension and who is approximately 5 weeks gestation presents to the ED with acute onset persistent diffuse low abdominal pain, nausea and vomiting intermittently for the last 2 weeks, worse in the last 24 hours. Patient states that she tested positive for about 3 weeks ago and has been having these symptoms intermittently since then. Patient states that she also developed right-sided chest wall pain about 12 hours ago. Patient states that the last time she had a vomiting episode was 24 hours ago however she has not been able to eat anything because of persistent nausea and drooling. Patient denies dysuria, urinary frequency and urgency, vaginal bleeding, vaginal discharge, low back pain, fever, chills, cough, shortness of breath, diarrhea or dizziness and syncope. MD Complaint: abdominal pain (Diffuse lower abdominal pain), other (Nausea and vomiting; right-sided chest wall pain) -: Sudden, week(s) (2) Location: suprapubic Radiation: none Migration to: no migration Severity: moderate Severity scale (0 -10): 6 Quality: cramping, aching Consistency: intermittent Improves With: nothing Worsens With: vomiting Context: other (Approximately 5 weeks gestation) Associated Symptoms: nausea, vomiting, anorexia. denies: diarrhea, fever, chills, dysuria, hematemesis, hematochezia, melena, hematuria, syncope, other - Related Data LMP Date: 04/01/21 LMP (females 10-50): Previous Rx's Medication Instructions Recorded Last Taken Type Ibuprofen [Motrin] 800 mg PO Q8HR PRN #30 tablet 01/14/21 Unknown Rx Tobramycin/Dexamethasone [Tobradex 2 drop OP Q4HR 7 Days #1 drops.susp 01/14/21 Unknown Rx Eye Drops 0.3/0.1%] Pyridoxine HCl (Vitamin B6) 25 mg PO TID #20 tablet 05/02/21 Unknown Rx [Pyridoxine HCl] Acetaminophen [Tylenol] 500 mg PO Q6HR PRN #30 tablet 05/16/21 Unknown Rx Promethazine [Phenergan] 25 mg PO Q6HR PRN #30 tab 05/16/21 Unknown Rx Allergies Allergy/AdvReac Type Severity Reaction Status Date / Time No Known Allergies Allergy Verified 05/15/21 17:23 ED Review of Systems ROS: Stated complaint: CHEST PAIN/NAUSEA/VOMITING/BAD MIGRANE Other details as noted in HPI Constitutional: denies: chills, fever Eyes: denies: eye pain, eye discharge, vision change ENT: denies: ear pain, throat pain Respiratory: denies: cough, shortness of breath, wheezing Cardiovascular: chest pain (Right-sided chest wall pain). denies: palpitations Endocrine: no symptoms reported Gastrointestinal: abdominal pain (Diffuse low abdominal pain), nausea, vomiting. denies: diarrhea Genitourinary: denies: urgency, dysuria, frequency, hematuria, discharge, dyspareunia Musculoskeletal: denies: back pain, joint swelling, arthralgia Skin: denies: rash, lesions Neurological: headache. denies: weakness, paresthesias Psychiatric: denies: anxiety, depression Hematological/Lymphatic: denies: easy bleeding, easy bruising ED Past Medical Hx - Past Medical History Hx Hypertension: Yes Hx Congestive Heart Failure: No Hx Diabetes: No Hx Deep Vein Thrombosis: No Hx Liver Disease: No Hx Renal Disease: No Hx Sickle Cell Disease: No Hx Seizures: No Hx Asthma: No Hx COPD: No Hx HIV: No Additional medical history: Vaginal delivery x 2 - Surgical History Additional Surgical History: cyst on right buttock. - Social History Smoking Status: Never Smoker Substance Use Type: None - Medications Home Medications: Home Medications Medication Instructions Recorded Confirmed Last Taken Type Ibuprofen [Motrin] 800 mg PO Q8HR PRN #30 tablet 01/14/21 Unknown Rx Tobramycin/Dexamethasone [Tobradex 2 drop OP Q4HR 7 Days #1 drops.susp 01/14/21 Unknown Rx Eye Drops 0.3/0.1%] Pyridoxine HCl (Vitamin B6) 25 mg PO TID #20 tablet 05/02/21 Unknown Rx [Pyridoxine HCl] Acetaminophen [Tylenol] 500 mg PO Q6HR PRN #30 tablet 05/16/21 Unknown Rx Promethazine [Phenergan] 25 mg PO Q6HR PRN #30 tab 05/16/21 Unknown Rx ED Physical Exam - General Limitations: No Limitations General appearance: alert, in no apparent distress - Head Head exam: Present: atraumatic, normocephalic, normal inspection - Eye Eye exam: Present: normal appearance, PERRL, EOMI Pupils: Present: normal accommodation - ENT ENT exam: Present: normal exam, normal orophraynx, mucous membranes moist, TM's normal bilaterally, normal external ear exam - Neck Neck exam: Present: normal inspection, full ROM - Respiratory Respiratory exam: Present: normal lung sounds bilaterally, chest wall tenderness (Palpable reproducible right-sided chest wall tenderness). Absent: respiratory distress, wheezes, rales, rhonchi, accessory muscle use, decreased breath sounds, prolonged expiratory - Cardiovascular Cardiovascular Exam: Present: regular rate, normal rhythm, normal heart sounds. Absent: systolic murmur, diastolic murmur, rubs, gallop - GI/Abdominal GI/Abdominal exam: Present: soft, tenderness (Palpable diffuse lower abdominal tenderness, no guarding or rebound), normal bowel sounds. Absent: guarding, rebound, hyperactive bowel sounds, hypoactive bowel sounds, organomegaly - Bi-manual exam: Present: other (Pelvic exam deferred at this time) - Extremities Exam Extremities exam: Present: normal inspection, full ROM, normal capillary refill - Back Exam Back exam: Present: normal inspection, full ROM. Absent: tenderness, CVA tenderness (R), CVA tenderness (L), muscle spasm, paraspinal tenderness, vertebral tenderness - Neurological Exam Neurological exam: Present: alert, oriented X3, CN II-XII intact, normal gait, r eflexes normal - Psychiatric Psychiatric exam: Present: normal affect, normal mood - Skin Skin exam: Present: warm, dry, intact, normal color. Absent: rash ED Course Vital Signs 05/15/21 17:24 Temperature 98.8 F Pulse Rate 98 H Respiratory 18 Rate Blood Pressure 137/88 O2 Sat by Pulse 100 Oximetry ED Medical Decision Making - Lab Data Result diagrams: 05/15/21 19:01 05/15/21 19:01 - Radiology Data Radiology results: report reviewed, image reviewed [facility] [address] [place] [address] Ultrasound Report Signed Patient: TRISHA SAENZ MR#: [id number] : 1985 Acct:[id number] Age/Sex: 35 / F ADM Date: 05/15/21 Loc: ED Attending Dr: Ordering Physician: LYLE DUQUE Date of Service: 05/15/21 Procedure(s): US OB transvaginal Accession Number(s): [id number] cc: LYLE DUQUE OB transvaginal ultrasound OB transabdominal ultrasound INDICATION: Pain FINDINGS: There is a single live intrauterine . Gestational sac measures 2.15 mm 7 weeks 1 day. [place]-rump length 2.6 mm 5 weeks 6 days. No second pole appear normal. Right adnexa measures 3.6 x 1.9 x 3.4 cm. Multiple cysts are seen. Uterus is enlarged measuring 13.1 x 7.8 x 8.6 cm. Anterior fibroid with cystic and complex area anteriorly. Left adnexa measures 2.8 x 2.0 x 2.0 cm. heart rate 1 50 bpm. Small amount of subchorionic bleed. IMPRESSION: 1. Live intrauterine . Ultrasound age 6 weeks 4 days. Positive heart tones. 2. Small amount of subchorionic bleeding. 3. Multiple right adnexal cyst. 4. Anterior uterine fibroid with cystic and complex area. Signer Name: Merrick Ames MD Signed: 05/16/2021 12:11 AM Workstation Name: [id number] Transcribed By: CW Dictated By: UMM AMES MD Electronically Authenticated By: UMM AMES MD Signed Date/Time: 05/16/2110 DD/ TD/TT: - Medical Decision Making This is a A0 35-year-old -[place] female with a history of hypertens ion and who is approximately 5 weeks gestation presents to the ED with acute onset persistent diffuse low abdominal pain, nausea and vomiting intermittently for the last 2 weeks, worse in the last 24 hours. Patient states that she tested positive for about 3 weeks ago and has been having these symptoms intermittently since then. Patient states that she also developed right-sided chest wall pain about 12 hours ago. Patient states that the last time she had a vomiting episode was 24 hours ago however she has not been able to eat anything because of persistent nausea and drooling. In the ED, patient is alert and oriented x3 and is not in any distress. Patient was treated in the ED with antiemetics and pain medications. Lab test results were reviewed and are all [place] [address]. There is however mild hyponatremia of 133 mmol/L. The rest of the lab test results including urinalysis are nonactionable. On reevaluation, patient's pain is well contr olled medications. Transvaginal ultrasound showed a single live IUP of approximately 6 weeks and 4 days with a heart rate of 150 bpm. It also showed small amount of subchorionic bleeding, multiple right adnexal cyst and an anterior uterine fibroid with cystic and complex area. Patient was therefore discharged home on medications and advised to maintain a complete pelvic rest, take medication as needed for pain and antiemetics. Patient was advised to follow-up with her [facility] physician in 5 to 7 days for reevaluation or return to the ED immediately if symptoms get worse. - Differential Diagnosis Ectopic ; UTI; ovarian cyst; kidney stone; constipation Critical care attestation.: If time is entered above; I have spent that time in minutes in the direct care of this critically ill patient, excluding procedure time. ED Disposition Clinical Impression: Abdominal pain during in first trimester, Nausea and vomiting in prior to 22 weeks gestation, Complex ovarian cyst Uterine fibroid Qualifiers: Uterine leiomyoma location: intramural Qualified Code(s): D25.1 - Intramural leiomyoma of uterus Disposition: - TO HOME OR SELFCARE Is pt being admited?: No Does the pt Need Aspirin: No Condition: Stable Instructions: Abdominal Pain (ED), Ovarian Cyst, [id number], Nausea and Vomiting, Adult, [id number], Abdominal Pain During , [id number], Morning Sickness, [id number] Additional Instructions: All lab test results were reviewed and are all nonactionable. Transvaginal ultrasound showed a single live intrauterine with heart rate of 150 bpm and of approximately 6 weeks and 4 days. It also showed uterine fibroids and complex ovarian cyst. Therefore take medication with food, drink plenty of fluids, maintain a call. Pelvic rest with no strenuous physical or sexual activity, follow-up with your [facility] physician in 5 to 7 days for reevaluation. Return to the ED immediately if symptoms get worse. Prescriptions: Acetaminophen [Tylenol] 500 mg PO Q6HR PRN #30 tablet PRN Reason: Pain , Severe (7-10) Promethazine [Phenergan] 25 mg PO Q6HR PRN #30 tab PRN Reason: Nausea Referrals: SOWMYA JOSHI MD [Staff Physician] - 3-5 Days Forms: Work/School Release Form(ED) Time of Disposition: 00:34 Print Language: [place]
--- NOTE | 2021-05-16 00:16 | Ultrasound Report ---
OB transvaginal ultrasound OB transabdominal ultrasound INDICATION: Pain FINDINGS: There is a single live intrauterine . Gestational sac measures 2.15 mm 7 weeks 1 d ay. [place]-rump length 2.6 mm 5 weeks 6 days. No second pole appear normal. Right adnexa measure s 3.6 x 1.9 x 3.4 cm. Multiple cysts are seen. Uterus is enlarged measuring 13.1 x 7.8 x 8.6 cm. Ante rior fibroid with cystic and complex area anteriorly. Left adnexa measures 2.8 x 2.0 x 2.0 cm. heart rate 1 50 bpm. Small amount of subchorionic bleed. IMPRESSION: 1. Live intrauterine . Ultrasound age 6 weeks 4 days. Positive heart tones. 2. Small amount of subchorionic bleeding. 3. Multiple right adnexal cyst. 4. Anterior uterine fibroid with cystic and complex area. Signer Name: Merrick Ames MD Signed: 05/16/2021 12:11 AM Workstation Name: [id number]
--- NOTE | 2021-05-16 00:16 | Ultrasound Report ---
OB transvaginal ultrasound OB transabdominal ultrasound INDICATION: Pain FINDINGS: There is a single live intrauterine . Gestational sac measures 2.15 mm 7 weeks 1 d ay. [place]-rump length 2.6 mm 5 weeks 6 days. No second pole appear normal. Right adnexa measure s 3.6 x 1.9 x 3.4 cm. Multiple cysts are seen. Uterus is enlarged measuring 13.1 x 7.8 x 8.6 cm. Ante rior fibroid with cystic and complex area anteriorly. Left adnexa measures 2.8 x 2.0 x 2.0 cm. heart rate 1 50 bpm. Small amount of subchorionic bleed. IMPRESSION: 1. Live intrauterine . Ultrasound age 6 weeks 4 days. Positive heart tones. 2. Small amount of subchorionic bleeding. 3. Multiple right adnexal cyst. 4. Anterior uterine fibroid with cystic and complex area. Signer Name: Merrick Aems MD Signed: 05/16/2021 12:11 AM Workstation Name: [id number]
[2021-05-16 02:44] VITALS: BP 130/69
--- NOTE | 2021-05-16 14:09 | Electrocardiograph Report ---
[facility] Test Date: 2021-05-15 Test Time: 17:29:44 Pat Name: TRISHA SAENZ Department: Room: Gender: F Pickle Pumper: SORAYA : 1985 Requested By: CLIF AKINS Order Number: [id number] Reading MD: Marianela Poole Measurements Intervals [place] Rate: 85 P: 61 IA: 162 QRS: 44 QRSD: 78 T: 44 QT: 385 QTc: 458 Interpretive Statements Sinus rhythm Probable left atrial enlargement No previous ECG available for comparison Electronically Signed On 05-16-2021 14:08:35 EDT by Marianela Poole
== END 2021-05-16 00:50 | disposition home or self-care (01) ==
LOC: ED 17:17
DX: O34.12 Maternal care for benign tumor of corpus uteri, second trimester (principal); O34.82 Maternal care for other abnormalities of pelvic organs, second trimester; O21.8 Other vomiting complicating pregnancy; O26.892 Other specified pregnancy related conditions, second trimester; N83.209 Unspecified ovarian cyst, unspecified side; R10.2 Pelvic and perineal pain; I10 Essential (primary) hypertension; Z3A.22 22 weeks gestation of pregnancy; Z98.890 Other specified postprocedural states; Z79.899 Other long term (current) drug therapy
CPT/HCPCS: 36415; 76801; 76817; 80053; 81001; 83690; 83735; 84702; 85025; 93005; 99284; Q0169

== ENCOUNTER 2021-05-27 17:06 | Emergency (ER) | payer MEDICAID ==
[2021-05-27 18:45] VITALS: BP 159/95
[2021-05-27] MEDS ORDERED: METOCLOPRAMIDE 10 MG/2 ML INJ IV ONE (19:26)
[2021-05-27] MEDS ORDERED: SODIUM CHLORIDE 0.9% 1000 ML 1,000 ML IV ONE (19:26)
[2021-05-27] MEDS ORDERED: diphenhydrAMINE 50 MG/ML VIAL IV ONE (19:26)
[2021-05-27 19:47] LABS: Bacteria,Urine 2+ /HPF (Negative); Bilirubin,Urine NEG (Negative); Blood,Urine NEG (Negative); Color,Urine Yellow (Yellow); Mucus,Urine 3+ /HPF; Urobilinogen,Urine < 2.0 mg/dL (<2.0)
[2021-05-27 19:56] LABS: Basophils # (Auto) 0.1 K/mm3 (0.0-0.1); Basophils % (Auto) 0.7 % (0.0-1.8); Eosinophils % (Auto) 0.4 % (0.0-4.3); Hematocrit 37.8 % (30.3-42.9); Hemoglobin 12.6 gm/dl (10.1-14.3); Lymphocytes # (Auto) 2.1 K/mm3 (1.2-5.4); Lymphocytes % (Auto) 24.5 % (13.4-35.0); Mean Corpuscular HGB Conc 33 % (30-34); Mean Corpuscular Volume 88 fl (79-97); Monocytes # (Auto) 0.5 K/mm3 (0.0-0.8); Monocytes % (Auto) 6.1 % (0.0-7.3); Platelet Count 229 K/mm3 (140-440); Red Cell Distribution Width 16.8 % (13.2-15.2)
--- NOTE | 2021-05-27 20:15 | Emergency Department Report ---
ED General Adult HPI - General Chief complaint: Nausea/Vomiting/Diarrhea Stated complaint: 8WKS PREG Time Seen by Provider: 05/27/21 19:25 Source: patient Mode of arrival: Ambulatory Limitations: No Limitations - History of Present Illness Initial comments: Patient is a 35-year-old female presents emergency room complaints of nausea and vomiting for the last 3 weeks. Patient is currently . She states that she has occasional mild cramping but has no pain currently. 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 vaginal bleeding. Patient has been seen in this emergency department 2 other prior occasions for the same symptoms. She has had a confirmed IUP on ultrasound. she is approximately 8 weeks . She states her DRUG COUNSELOR is at my DRUG COUNSELOR and they advised for her to be seen in the ER for IV fluids and medications. She states that she has been taking promethazine and Zofran. She states that she had one episode of vomiting today. She states that she is hav ing difficulty tolerating p.o. intake but is not taking her medicine prior to attempting p.o. intake. 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 urinary symptoms, diarrhea, fever, back pain, abnormal vaginal discharge. No past medical history. No allergies to medications. /P: 2/A: 1 - Related Data Previous Rx's Medication Instructions Recorded Last Taken Type Ibuprofen [Motrin] 800 mg PO Q8HR PRN #30 tablet 01/14/21 Unknown Rx Tobramycin/Dexamethasone [Tobradex 2 drop OP Q4HR 7 Days #1 drops.susp 01/14/21 Unknown Rx Eye Drops 0.3/0.1%] Pyridoxine HCl (Vitamin B6) 25 mg PO TID #20 tablet 05/02/21 Unknown Rx [Pyridoxine HCl] Acetaminophen [Tylenol] 500 mg PO Q6HR PRN #30 tablet 05/16/21 Unknown Rx Promethazine [Phenergan] 25 mg PO Q6HR PRN #30 tab 05/16/21 Unknown Rx Ondansetron [Zofran Odt] 4 mg PO Q8HR PRN #20 tab.rapdis 05/27/21 Unknown Rx Promethazine HCl [Phenergan SUPPOS] 25 mg RC Q8HR PRN #10 supp.rect 05/27/21 Unknown Rx Allergies Allergy/AdvReac Type Severity Reaction Status Date / Time No Known Allergies Allergy Verified 05/15/21 17:23 ED Review of Systems ROS: Stated complaint: 8WKS PREG Other details as noted in HPI Comment: All other systems reviewed and negative ED Past Medical Hx - Past Medical History Previous Medical History?: Yes Hx Hypertension: Yes Hx Congestive Heart Failure: No Hx Diabetes: No Hx Deep Vein Thrombosis: No Hx Liver Disease: No Hx Renal Disease: No Hx Sickle Cell Disease: No Hx Seizures: No Hx Asthma: No Hx COPD: No Hx HIV: No Additional medical history: Vaginal delivery x 2 - Surgical History Past Surgical History?: Yes Additional Surgical History: cyst on right buttock. - Social History Smoking Status: Never Smoker Substance Use Type: None - Medications Home Medications: Home Medications Medication Instructions Recorded Confirmed Last Taken Type Ibuprofen [Motrin] 800 mg PO Q8HR PRN #30 tablet 01/14/21 Unknown Rx Tobramycin/Dexamethasone [Tobradex 2 drop OP Q4HR 7 Days #1 drops.susp 01/14/21 Unknown Rx Eye Drops 0.3/0.1%] Pyridoxine HCl (Vitamin B6) 25 mg PO TID #20 tablet 05/02/21 Unknown Rx [Pyridoxine HCl] Acetaminophen [Tylenol] 500 mg PO Q6HR PRN #30 tablet 05/16/21 Unknown Rx Promethazine [Phenergan] 25 mg PO Q6HR PRN #30 tab 05/16/21 Unknown Rx Ondansetron [Zofran Odt] 4 mg PO Q8HR PRN #20 tab.rapdis 05/27/21 Unknown Rx Promethazine HCl [Phenergan SUPPOS] 25 mg RC Q8HR PRN #10 supp.rect 05/27/21 Unknown Rx ED Physical Exam - General Limitations: No Limitations General appearance: alert, in no apparent distress - Head Head exam: Present: atraumatic, normocephalic - Eye Eye exam: Present: normal appearance - ENT ENT exam: Present: mucous membranes moist - Respiratory Respiratory exam: Present: normal lung sounds bilaterally. Absent: respiratory distress, wheezes, rales, rhonchi, stridor, chest wall tenderness, accessory muscle use, decreased breath sounds, prolonged expiratory - Cardiovascular Cardiovascular Exam: Present: regular rate, normal rhythm, normal heart sounds. Absent: systolic murmur, diastolic murmur, rubs, gallop - GI/Abdominal GI/Abdominal exam: Present: soft, normal bowel sounds. Absent: distended, tenderness, guarding, rebound, rigid - Neurological Exam Neurological exam: Present: alert, oriented X3 - Psychiatric Psychiatric exam: Present: normal affect, normal mood - Skin Skin exam: Present: warm, dry, intact ED Course Vital Signs 05/27/21 18:44 Temperature 98.9 F Pulse Rate 77 Respiratory 18 Rate Blood Pressure 159/95 [Right] O2 Sat by Pulse 100 Oximetry ED Medical Decision Making - Lab Data Result diagrams: 05/27/21 19:37 05/27/21 19:37 Lab Results 05/27/21 05/27/21 05/27/21 Range/Units 19:37 19:37 19:37 WBC 8.4 (4.5-11.0) K/mm3 RBC 4.30 (3.65-5.03) M/mm3 Hgb 12.6 (10.1-14.3) gm/dl Hct 37.8 (30.3-42.9) % MCV 88 (79-97) fl MCH 29 (28-32) pg MCHC 33 (30-34) % RDW 16.8 H (13.2-15.2) % Plt Count 229 (140-440) K/mm3 Lymph % (Auto) 24.5 (13.4-35.0) % [place] % (Auto) 6.1 (0.0-7.3) % Eos % (Auto) 0.4 (0.0-4.3) % Baso % (Auto) 0.7 (0.0-1.8) % Lymph # (Auto) 2.1 (1.2-5.4) K/mm3 [place] # (Auto) 0.5 (0.0-0.8) K/mm3 Eos # (Auto) 0.0 (0.0-0.4) K/mm3 Baso # (Auto) 0.1 (0.0-0.1) K/mm3 Seg Neutrophils % 68.3 (40.0-70.0) % Seg Neutrophils # 5.7 (1.8-7.7) K/mm3 Sodium 132 L (137-145) mmol/L Potassium 3.7 (3.6-5.0) mmol/L Chloride 99.4 (98-107) mmol/L Carbon Dioxide 19 L (22-30) mmol/L Anion Gap 17 mmol/L BUN 9 (7-17) mg/dL Creatinine 0.6 (0.6-1.2) mg/dL Estimated GFR > 60 ml/min BUN/Creatinine Ratio 15 % Glucose 79 (65-100) mg/dL Calcium 9.0 (8.4-10.2) mg/dL Total Bilirubin 0.20 (0.1-1.2) mg/dL AST 13 (5-40) units/L ALT 11 (7-56) units/L Alkaline Phosphatase 35 (35-129) units/L Total Protein 7.1 (6.3-8.2) g/dL Albumin 3.9 (3.9-5) g/dL Albumin/Globulin Ratio 1.2 % Lipase 13 (13-60) units/L HCG, Quant 301532 H (0-4) mIU/mL Urine Color (Yellow) Urine Turbidity (Clear) Urine pH (5.0-7.0) Ur Specific [place] (1.003-1.030) Urine Protein (Negative) mg/dL Urine Glucose (UA) (Negative) mg/dL Urine Ketones (Negative) mg/dL Urine Blood (Negative) Urine Nitrite (Negative) Urine Bilirubin (Negative) Urine Urobilinogen (<2.0) mg/dL Ur Leukocyte Esterase (Negative) Urine WBC (Auto) (0.0-6.0) /HPF Urine RBC (Auto) (0.0-6.0) /HPF U Epithel Cells (Auto) (0-13.0) /HPF Urine Bacteria (Auto) (Negative) /HPF Urine Mucus /HPF 05/27/21 Range/Units Unknown WBC (4.5-11.0) K/mm3 RBC (3.65-5.03) M/mm3 Hgb (10.1-14.3) gm/dl Hct (30.3-42.9) % MCV (79-97) fl MCH (28-32) pg MCHC (30-34) % RDW (13.2-15.2) % Plt Count (140-440) K/mm3 Lymph % (Auto) (13.4-35.0) % [place] % (Auto) (0.0-7.3) % Eos % (Auto) (0.0-4.3) % Baso % (Auto) (0.0-1.8) % Lymph # (Auto) (1.2-5.4) K/mm3 [place] # (Auto) (0.0-0.8) K/mm3 Eos # (Auto) (0.0-0.4) K/mm3 Baso # (Auto) (0.0-0.1) K/mm3 Seg Neutrophils % (40.0-70.0) % Seg Neutrophils # (1.8-7.7) K/mm3 Sodium (137-145) mmol/L Potassium (3.6-5.0) mmol/L Chloride (98-107) mmol/L Carbon Dioxide (22-30) mmol/L Anion Gap mmol/L BUN (7-17) mg/dL Creatinine (0.6-1.2) mg/dL Estimated GFR ml/min BUN/Creatinine Ratio % Glucose (65-100) mg/dL Calcium (8.4-10.2) mg/dL Total Bilirubin (0.1-1.2) mg/dL AST (5-40) units/L ALT (7-56) units/L Alkaline Phosphatase (35-129) units/L Total Protein (6.3-8.2) g/dL Albumin (3.9-5) g/dL Albumin/Globulin Ratio % Lipase (13-60) units/L HCG, Quant (0-4) mIU/mL Urine Color Yellow (Yellow) Urine Turbidity Hazy (Clear) Urine pH 5.0 (5.0-7.0) Ur Specific [place] 1.024 (1.003-1.030) Urine Protein 30 mg/dl (Negative) mg/dL Urine Glucose (UA) Neg (Negative) mg/dL Urine Ketones 80 (Negative) mg/dL Urine Blood Neg (Negative) Urine Nitrite Neg (Negative) Urine Bilirubin Neg (Negative) Urine Urobilinogen < 2.0 (<2.0) mg/dL Ur Leukocyte Esterase Neg (Negative) Urine WBC (Auto) 3.0 (0.0-6.0) /HPF Urine RBC (Auto) 4.0 (0.0-6.0) /HPF U Epithel Cells (Auto) 18.0 H (0-13.0) /HPF Urine Bacteria (Auto) 2+ (Negative) /HPF Urine Mucus 3+ /HPF - Medical Decision Making Patient is a 35-year-old female presents emergency room complaints of nausea and vomiting for the last 3 weeks. Patient is currently . She states that she has occasional mild cramping but has no pain currently. 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 vaginal bleeding. Patient has been seen in this emergency department 2 other prior occasions for the same symptoms. She has had a confirmed IUP on ultrasound. she is approximately 8 weeks . She states her DRUG COUNSELOR is at my DRUG COUNSELOR and they advised for her to be seen in the ER for IV fluids and medications. She states that she has been taking promethazine and Zofran. She states that she had one episode of vomiting today. She states that she is hav ing difficulty tolerating p.o. intake but is not taking her medicine prior to attempting p.o. intake. 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 urinary symptoms, diarrhea, fever, back pain, abnormal vaginal discharge. No past medical history. No allergies to medications. /P: 2/A: 1. vss. No abdominal tenderness on exam, no guarding, no rebound, no rigidity, normal bowel sounds, no peritoneal signs. labs and UA with mild dehydration. UA shows no white blood cells, no leukocyte esterase, no nitrites, there is epithelial cells likely due to contamination. Patient given medications while in the emergency department, she was able to tolerate p.o. intake without difficulty and had no episodes of vomiting while in the ED. patient given prescription for medications. Advised patient Please take medication as prescribed. Increase your fluid intake. Follow-up with your DRUG COUNSELOR. Follow-up with your primary care doctor. Return to emergency room for any new or worsening symptoms. Critical care attestation.: If time is entered above; I have spent that time in minutes in the direct care of this critically ill patient, excluding procedure time. ED Disposition Clinical Impression: Nausea/vomiting in , Dehydration Disposition: DC-01 TO HOME OR SELFCARE Is pt being admited?: No Does the pt Need Aspirin: No Condition: Stable Instructions: Nausea and Vomiting, Adult, [id number] Additional Instructions: Please take medication as prescribed. Increase your fluid intake. Follow-up with your DRUG COUNSELOR. Follow-up with your primary care doctor. Return to emergency room for any new or worsening symptoms. Prescriptions: Promethazine HCl [Phenergan SUPPOS] 25 mg RC Q8HR PRN #10 supp.rect PRN Reason: vomiting Ondansetron [Zofran Odt] 4 mg PO Q8HR PRN #20 tab.rapdis PRN Reason: vomiting Referrals: PRIMARY CARE, [Referring] - 2-3 Days [facility] [Provider Group] - 2-3 Days Time of Disposition: 22:15 Print Language: [place]
[2021-05-27 20:16] LABS: Alanine Aminotransferase 11 units/L (7-56); Albumin 3.9 g/dL (3.9-5); Blood Urea Nitrogen 9 mg/dL (7-17); Hemolysis Index 16
[2021-05-27 20:23] LABS: BUN/Creatinine Ratio 15
[2021-05-27] MEDS ORDERED: ACETAMINOPHEN 325 MG TAB PO ONE (21:15)
== END 2021-05-27 23:50 | disposition home or self-care (01) ==
LOC: ED 17:06
DX: O21.8 Other vomiting complicating pregnancy (principal); O26.891 Other specified pregnancy related conditions, first trimester; E86.0 Dehydration; Z79.899 Other long term (current) drug therapy; Z3A.08 8 weeks gestation of pregnancy; Z98.890 Other specified postprocedural states
CPT/HCPCS: 36415; 80053; 81001; 83690; 84702; 85025; 96361; 96374; 96375; 99283; J1200; J2765; J7030

== ENCOUNTER 2021-06-02 08:56 | Emergency (ER) | payer MEDICAID ==
[2021-06-02 09:47] VITALS: BP 145/100
--- NOTE | 2021-06-02 13:19 | Emergency Department Report ---
ED General Adult HPI - General Chief complaint: Nausea/Vomiting/Diarrhea Stated complaint: 8WKS PREG/VOMITING SPECTS OF BLOOD Time Seen by Provider: 06/02/21 13:07 Source: patient Mode of arrival: Ambulatory Limitations: No Limitations - History of Present Illness Initial comments: 35-year-old -Vietnamese female who is approximately 8 weeks presents to the emergency room for nausea and vomiting the last month. Patient has had 2 OB ultrasounds. She has had lab work done and was diagnosed with dehydration and nausea and vomiting on her last visit. Patient has been taking Zofran, Reglan promethazine rectal. Patient states she is not even able to hold down water. Patient reports she is made contact with her primary [employer] and they referred her to follow-up in the emergency room. Patient denies any pain at this time. Her last menstrual period was 04/01/2021. She is 3 para 2. Patient reports only complication she had from her last was hypertension. Patient blood pressure here in triage was 145/100. Patient denies any chest pain shortness of breathing or headache. Onset/Timin -: month(s) Severity scale (0 -10): 0 Improves with: none Worsens with: eating Associated Symptoms: nausea/vomiting Treatments Prior to Arrival: none - Related Data Previous Rx's Medication Instructions Recorded Last Taken Type Ibuprofen [Motrin] 800 mg PO Q8HR PRN #30 tablet 01/14/21 Unknown Rx Tobramycin/Dexamethasone [Tobradex 2 drop OP Q4HR 7 Days #1 drops.susp 01/14/21 Unknown Rx Eye Drops 0.3/0.1%] Pyridoxine HCl (Vitamin B6) 25 mg PO TID #20 tablet 05/02/21 Unknown Rx [Pyridoxine HCl] Acetaminophen [Tylenol] 500 mg PO Q6HR PRN #30 tablet 05/16/21 Unknown Rx Promethazine [Phenergan] 25 mg PO Q6HR PRN #30 tab 05/16/21 Unknown Rx Ondansetron [Zofran Odt] 4 mg PO Q8HR PRN #20 tab.rapdis 05/27/21 Unknown Rx Promethazine HCl [Phenergan SUPPOS] 25 mg RC Q8HR PRN #10 supp.rect 05/27/21 Unknown Rx Doxylamine Succinate [Unisom] 25 mg PO BID PRN #30 tablet 06/02/21 Unknown Rx Jeane Root [Jeane] 250 mg PO QID PRN 40 Days #40 06/02/21 Unknown Rx capsule Pyridoxine HCl (Vitamin B6) 50 mg PO BID PRN #20 tablet 06/02/21 Unknown Rx [Pyridoxine HCl] Allergies Allergy/AdvReac Type Severity Reaction Status Date / Time No Known Allergies Allergy Verified 05/15/21 17:23 ED Review of Systems ROS: Stated complaint: 8WKS PREG/VOMITING SPECTS OF BLOOD Other details as noted in HPI Comment: All other systems reviewed and negative ED Past Medical Hx - Past Medical History Previous Medical History?: Yes Hx Hypertension: Yes Hx Congestive Heart Failure: No Hx Diabetes: No Hx Deep Vein Thrombosis: No Hx Liver Disease: No Hx Renal Disease: No Hx Sickle Cell Disease: No Hx Seizures: No Hx Asthma: No Hx COPD: No Hx HIV: No Additional medical history: Vaginal delivery x 2 - Surgical History Past Surgical History?: Yes Additional Surgical History: cyst on right buttock. - Social History Smoking Status: Never Smoker Substance Use Type: None - Medications Home Medications: Home Medications Medication Instructions Recorded Confirmed Last Taken Type Ibuprofen [Motrin] 800 mg PO Q8HR PRN #30 tablet 01/14/21 Unknown Rx Tobramycin/Dexamethasone [Tobradex 2 drop OP Q4HR 7 Days #1 drops.susp 01/14/21 Unknown Rx Eye Drops 0.3/0.1%] Pyridoxine HCl (Vitamin B6) 25 mg PO TID #20 tablet 05/02/21 Unknown Rx [Pyridoxine HCl] Acetaminophen [Tylenol] 500 mg PO Q6HR PRN #30 tablet 05/16/21 Unknown Rx Promethazine [Phenergan] 25 mg PO Q6HR PRN #30 tab 05/16/21 Unknown Rx Ondansetron [Zofran Odt] 4 mg PO Q8HR PRN #20 tab.rapdis 05/27/21 Unknown Rx Promethazine HCl [Phenergan SUPPOS] 25 mg RC Q8HR PRN #10 supp.rect 05/27/21 Unknown Rx Doxylamine Succinate [Unisom] 25 mg PO BID PRN #30 tablet 06/02/21 Unknown Rx Jeane Root [Jeane] 250 mg PO QID PRN 40 Days #40 06/02/21 Unknown Rx capsule Pyridoxine HCl (Vitamin B6) 50 mg PO BID PRN #20 tablet 06/02/21 Unknown Rx [Pyridoxine HCl] ED Physical Exam - General Limitations: No Limitations General appearance: alert, in no apparent distress, obese - Head Head exam: Present: atraumatic, normocephalic - Eye Eye exam: Present: normal appearance - ENT ENT exam: Present: mucous membranes moist - Neck Neck exam: Present: normal inspection, full ROM - Respiratory Respiratory exam: Present: normal lung sounds bilaterally. Absent: accessory muscle use - Cardiovascular Cardiovascular Exam: Present: regular rate - GI/Abdominal GI/Abdominal exam: Present: soft. Absent: distended, tenderness - Back Exam Back exam: Present: normal inspection, full ROM - Neurological Exam Neurological exam: Present: alert, oriented X3, normal gait - Psychiatric Psychiatric exam: Present: normal affect - Skin Skin exam: Present: warm, dry, intact, normal color. Absent: rash ED Course Vital Signs 06/02/21 09:46 Temperature 99.5 F Pulse Rate 89 Respiratory 18 Rate Blood Pressure 145/100 [Right] O2 Sat by Pulse 100 Oximetry ED Medical Decision Making - Lab Data Result diagrams: 06/02/21 14:17 06/02/21 14:17 - Radiology Data Radiology results: report reviewed [facility] [address] [place] [address] Ultrasound Report Signed Patient: TRISHA SAENZ MR#: [id number] : 1985 Acct:[id number] Age/Sex: 35 / F ADM Date: 06/02/21 Loc: ED Attending Dr: Ordering Physician: LYLE TRACEY Date of Service: 06/02/21 Procedure(s): US abdomen complete Accession Number(s): [id number] cc: LYLE TRACEY ULTRASOUND ABDOMEN, COMPLETE INDICATION: Nausea and vomiting. COMPARISON: None available. FINDINGS: Pancreas: Normal. Abdominal Aorta: Normal. IVC: Normal. Liver: Normal. Gallbladder: Normal. Bile ducts: Normal. Common Bile Duct measures 5.2 mm. Right Kidney: Normal. Left Kidney: Normal. Spleen: Normal. Free fluid: None. Additional Findings: None. IMPRESSION: Unremarkable abdominal ultrasound. Signer Name: Ken Isaacs MD Signed: 06/02/2021 2:05 PM Workstation Name: [id number] Transcribed By: ES Dictated By: Ken Isaacs MD Electronically Authenticated By: Ken Isaacs MD Signed Date/Time: 06/02/211404 DD/ 03 TD/TT: Print Cancel - Medical Decision Making 35-year-old -Vietnamese female who is approximately 8 weeks presents to the emergency room for nausea and vomiting the last month. Patient has had 2 OB ultrasounds. She has had lab work done and was diagnosed with dehydration and nausea and vomiting on her last visit. Patient has been taking Zofran, Reglan and promethazine rectal. Patient states she is not even able to hold down water. Patient reports she is made contact with her primary [employer]TAIN and they referred her to follow-up in the emergency room. Patient denies any pain at this time. Her last menstrual period was 04/01/2021. She is 3 para 2. Patient reports only complication she had from her last was hypertension. Patient blood pressure here in triage was 145/100. Patient denies any chest pain shortness of breathing or headache. Critical care attestation.: If time is entered above; I have spent that time in minutes in the direct care of this critically ill patient, excluding procedure time. ED Disposition Clinical Impression: Hyperemesis gravidarum before end of 22 week gestation with carbohydrate depletion Disposition: DC-01 TO HOME OR SELFCARE Is pt being admited?: No Does the pt Need Aspirin: No Condition: Stable Instructions: Hyperemesis Gravidarum Additional Instructions: Ultrasound of your gallbladder is normal. Labs are stable. I recommend taking medications at ordered for you. Increase your fluid intake advance your diet as tolerated. Prescriptions: Jeane Root [Jeane] 250 mg PO QID PRN 40 Days #40 capsule PRN Reason: Nausea And Vomiting Pyridoxine HCl (Vitamin B6) [Pyridoxine HCl] 50 mg PO BID PRN #20 tablet PRN Reason: Nausea And Vomiting Doxylamine Succinate [Unisom] 25 mg PO BID PRN #30 tablet PRN Reason: Nausea And Vomiting Referrals: LINH MAZA MD [Primary Care Provider] - 3-5 Days
[2021-06-02] MEDS ORDERED: SODIUM CHLORIDE 0.9% 1000 ML 1,000 ML IV ONE (13:22)
[2021-06-02] MEDS ORDERED: ONDANSETRON 4 MG/2 ML INJ IV ONE (13:22)
--- NOTE | 2021-06-02 14:10 | Ultrasound Report ---
ULTRASOUND ABDOMEN, COMPLETE INDICATION: Nausea and vomiting. COMPARISON: None available. FINDINGS: Pancreas: Normal. Abdominal Aorta: Normal. IVC: Normal. Liver: Normal. Gallbladder: Normal. Bile ducts: Normal. Common Bile Duct measures 5.2 mm. Right Kidney: Normal. Left Kidney: Normal. Spleen: Normal. Free fluid: None. Additional Findings: None. IMPRESSION: Unremarkable abdominal ultrasound. Signer Name: Ken Isaacs MD Signed: 06/02/2021 2:05 PM Workstation Name: [id number]
[2021-06-02 14:44] LABS: Hematocrit 35.8 % (30.3-42.9); Mean Corpuscular HGB Conc 34 % (30-34); Mean Corpuscular Volume 87 fl (79-97); Platelet Count 222 K/mm3 (140-440); Red Blood Count 4.12 M/mm3 (3.65-5.03); Red Cell Distribution Width 16.4 % (13.2-15.2)
[2021-06-02 14:58] LABS: Alanine Aminotransferase 5 units/L (7-56); Albumin 3.9 g/dL (3.9-5); Blood Urea Nitrogen 10 mg/dL (7-17); Calcium 8.8 mg/dL (8.4-10.2); Hemolysis Index 2
[2021-06-02 15:01] LABS: BUN/Creatinine Ratio 17
[2021-06-02 18:27] LABS: Total Cells Counted 100
[2021-06-02 18:28] LABS: RBC Morphology Normal
== END 2021-06-02 16:31 | disposition home or self-care (01) ==
LOC: ED 08:56
DX: O21.1 Hyperemesis gravidarum with metabolic disturbance (principal); Z3A.08 8 weeks gestation of pregnancy; I10 Essential (primary) hypertension
CPT/HCPCS: 36415; 76700; 80053; 83690; 85007; 85025; 96361; 96374; 99284; J2405; J7030

== ENCOUNTER 2021-06-06 21:41 | Emergency (ER) | payer MEDICAID ==
[2021-06-06 23:59] LABS: Basophils # (Auto) 0.1 K/mm3 (0.0-0.1); Basophils % (Auto) 1.3 % (0.0-1.8); Eosinophils % (Auto) 0.3 % (0.0-4.3); Hematocrit 36.3 % (30.3-42.9); Hemoglobin 11.9 gm/dl (10.1-14.3); Lymphocytes # (Auto) 1.6 K/mm3 (1.2-5.4); Lymphocytes % (Auto) 20.1 % (13.4-35.0); Mean Corpuscular HGB Conc 33 % (30-34); Mean Corpuscular Volume 88 fl (79-97); Monocytes # (Auto) 0.5 K/mm3 (0.0-0.8); Platelet Count 238 K/mm3 (140-440); Red Blood Count 4.11 M/mm3 (3.65-5.03); Red Cell Distribution Width 16.9 % (13.2-15.2)
[2021-06-07 00:17] LABS: Alanine Aminotransferase 6 units/L (7-56); Blood Urea Nitrogen 14 mg/dL (7-17); Hemolysis Index 26
[2021-06-07 00:22] LABS: BUN/Creatinine Ratio 23
[2021-06-07 03:23] LABS: Bilirubin,Urine NEG (Negative); Blood,Urine NEG (Negative); Color,Urine Yellow (Yellow); Mucus,Urine 3+ /HPF; Urobilinogen,Urine < 2.0 mg/dL (<2.0)
--- NOTE | 2021-06-07 03:56 | Emergency Department Report ---
ED N/V/D HPI - General Chief complaint: Nausea/Vomiting/Diarrhea Stated complaint: 9WKS PREG/THROWING UP BLOOD Source: patient Mode of arrival: Ambulatory Limitations: No Limitations - History of Present Illness Initial comments: Patient is a A0 35-year-old -Portuguese female who is approximately 9 weeks gestation presents to the ED with complaint of acute onset persistent intractable nausea and vomiting for the last 2 weeks, worse in the last 2 days. Patient states that she has been to various hospitals with similar complaints and that all the antiemetic prescriptions given to her have not been able to effectively control her intractable nausea and vomiting because she is unable to swallow any medicine. Patient states that her symptoms got worse in the last 2 days such that she has not been able to eat anything because of nausea and vomiting and states that she feels dehydrated. Patient denies hematemesis, hematochezia, diarrhea, abdominal pain, chest pain or shortness of breath, fever, chills, dysuria, urinary frequency and urgency, vaginal discharge, vaginal bleeding, low back pain, headache, palpitations or dizziness and syncope. MD complaint: nausea, vomiting, other (Manifestation) -: Sudden (2) Description of Vomiting: food contents, watery Associated Abdominal Pain: No Location: diffuse Radiation: none Severity: mild Pain Scale: 0 Quality: dull Consistency: intermittent Improves with: none Worsens with: eating, vomiting Context: other () Associated Symptoms: denies other symptoms, loss of appetite, malaise, nausea/vomiting. denies: myalgias, chest pain, cough, headaches, rash, dysuria, shortness of breath, syncope, weakness - Related Data Previous Rx's Medication Instructions Recorded Last Taken Type Ibuprofen [Motrin] 800 mg PO Q8HR PRN #30 tablet 01/14/21 Unknown Rx Tobramycin/Dexamethasone [Tobradex 2 drop OP Q4HR 7 Days #1 drops.susp 01/14/21 Unknown Rx Eye Drops 0.3/0.1%] Pyridoxine HCl (Vitamin B6) 25 mg PO TID #20 tablet 05/02/21 Unknown Rx [Pyridoxine HCl] Acetaminophen [Tylenol] 500 mg PO Q6HR PRN #30 tablet 05/16/21 Unknown Rx Promethazine [Phenergan] 25 mg PO Q6HR PRN #30 tab 05/16/21 Unknown Rx Ondansetron [Zofran Odt] 4 mg PO Q8HR PRN #20 tab.rapdis 05/27/21 Unknown Rx Promethazine HCl [Phenergan SUPPOS] 25 mg RC Q8HR PRN #10 supp.rect 05/27/21 Unknown Rx Doxylamine Succinate [Unisom] 25 mg PO BID PRN #30 tablet 06/02/21 Unknown Rx Jeane Root [Jeane] 250 mg PO QID PRN 40 Days #40 06/02/21 Unknown Rx capsule Pyridoxine HCl (Vitamin B6) 50 mg PO BID PRN #20 tablet 06/02/21 Unknown Rx [Pyridoxine HCl] Famotidine [Pepcid] 20 mg PO BID #60 tablet 06/07/21 Unknown Rx Promethazine [Phenergan SUPPOS] 25 mg [place] Q6HR PRN #30 supp.rect 06/07/21 Unknown Rx Allergies Allergy/AdvReac Type Severity Reaction Status Date / Time No Known Allergies Allergy Verified 05/15/21 17:23 ED Review of Systems ROS: Stated complaint: 9WKS PREG/THROWING UP BLOOD Other details as noted in HPI Constitutional: malaise, weakness. denies: chills, fever Eyes: denies: eye pain, eye discharge, vision change ENT: denies: ear pain, throat pain Respiratory: denies: cough, shortness of breath, wheezing Cardiovascular: denies: chest pain, palpitations Endocrine: no symptoms reported Gastrointestinal: nausea, vomiting. denies: abdominal pain, diarrhea, constipation, hematemesis, hematochezia Genitourinary: denies: urgency, dysuria, frequency, hematuria, discharge, abnormal menses Musculoskeletal: denies: back pain, joint swelling, arthralgia Skin: denies: rash, lesions Neurological: denies: headache, weakness, paresthesias Psychiatric: denies: anxiety, depression Hematological/Lymphatic: denies: easy bleeding, easy bruising ED Past Medical Hx - Past Medical History Previous Medical History?: Yes Hx Hypertension: Yes Hx Congestive Heart Failure: No Hx Diabetes: No Hx Deep Vein Thrombosis: No Hx Liver Disease: No Hx Renal Disease: No Hx Sickle Cell Disease: No Hx Seizures: No Hx Asthma: No Hx COPD: No Hx HIV: No Additional medical history: Vaginal delivery x 2 - Surgical History Past Surgical History?: Yes Additional Surgical History: cyst on right buttock. - Social History Smoking Status: Never Smoker Substance Use Type: None - Medications Home Medications: Home Medications Medication Instructions Recorded Confirmed Last Taken Type Ibuprofen [Motrin] 800 mg PO Q8HR PRN #30 tablet 01/14/21 Unknown Rx Tobramycin/Dexamethasone [Tobradex 2 drop OP Q4HR 7 Days #1 drops.susp 01/14/21 Unknown Rx Eye Drops 0.3/0.1%] Pyridoxine HCl (Vitamin B6) 25 mg PO TID #20 tablet 05/02/21 Unknown Rx [Pyridoxine HCl] Acetaminophen [Tylenol] 500 mg PO Q6HR PRN #30 tablet 05/16/21 Unknown Rx Promethazine [Phenergan] 25 mg PO Q6HR PRN #30 tab 05/16/21 Unknown Rx Ondansetron [Zofran Odt] 4 mg PO Q8HR PRN #20 tab.rapdis 05/27/21 Unknown Rx Promethazine HCl [Phenergan SUPPOS] 25 mg RC Q8HR PRN #10 supp.rect 05/27/21 Unknown Rx Doxylamine Succinate [Unisom] 25 mg PO BID PRN #30 tablet 06/02/21 Unknown Rx Jeane Root [Jeane] 250 mg PO QID PRN 40 Days #40 06/02/21 Unknown Rx capsule Pyridoxine HCl (Vitamin B6) 50 mg PO BID PRN #20 tablet 06/02/21 Unknown Rx [Pyridoxine HCl] Famotidine [Pepcid] 20 mg PO BID #60 tablet 06/07/21 Unknown Rx Promethazine [Phenergan SUPPOS] 25 mg [place] Q6HR PRN #30 supp.rect 06/07/21 Unknown Rx ED Physical Exam - General Limitations: No Limitations General appearance: alert, in no apparent distress, obese - Head Head exam: Present: atraumatic, normocephalic, normal inspection - Eye Eye exam: Present: normal appearance, PERRL, EOMI - ENT ENT exam: Present: normal exam, normal orophraynx, mucous membranes moist, TM's normal bilaterally, normal external ear exam - Neck Neck exam: Present: normal inspection, full ROM. Absent: tenderness - Respiratory Respiratory exam: Present: normal lung sounds bilaterally. Absent: respiratory distress, wheezes, rales, rhonchi, chest wall tenderness, accessory muscle use, decreased breath sounds, prolonged expiratory - Cardiovascular Cardiovascular Exam: Present: regular rate, normal rhythm, normal heart sounds. Absent: systolic murmur, diastolic murmur, rubs, gallop - GI/Abdominal GI/Abdominal exam: Present: soft, normal bowel sounds. Absent: tenderness, guarding, rebound, hyperactive bowel sounds, hypoactive bowel sounds, organomegaly, mass - Extremities Exam Extremities exam: Present: normal inspection, full ROM, normal capillary refill - Back Exam Back exam: Present: normal inspection, full ROM. Absent: tenderness, CVA tenderness (L), muscle spasm, paraspinal tenderness, vertebral tenderness - Neurological Exam Neurological exam: Present: alert, oriented X3, CN II-XII intact, normal gait, reflexes normal - Psychiatric Psychiatric exam: Present: normal affect, normal mood, anxious - Skin Skin exam: Present: warm, dry, intact, normal color. Absent: rash ED Course Vital Signs 06/06/21 06/06/21 06/07/21 23:09 23:11 04:40 Temperature 98.9 F Pulse Rate 76 Respiratory 16 18 Rate Blood Pressure 133/85 [Right] O2 Sat by Pulse 98 Oximetry ED Medical Decision Making - Lab Data Result diagrams: 06/06/21 23:25 06/06/21 23:25 - Medical Decision Making This is a A0 35-year-old -Portuguese female who is approximately 9 weeks gestation presents to the ED with complaint of acute onset persistent intractable nausea and vomiting for the last 2 weeks, worse in the last 2 days. Patient states that she has been to various hospitals with similar complaints and that all the antiemetic prescriptions given to her have not been able to effectively control her intractable nausea and vomiting because she is unable to swallow any medicine. Patient states that her symptoms got worse in the last 2 days such that she has not been able to eat anything because of nausea and vomiting and states that she feels dehydrated. In the ED, patient is alert and oriented x3 and is not in any distress. Patient is hemodynamically stable. Lab test results were reviewed and are all nonactionable. Patient was treated in the ED for nausea and vomiting and also received normal saline 1 L IV bolus x1. Patient also received pain medications as well as antacids. On reevaluation, patient felt better, patient passed oral fluid challenge in the ED with no difficulties. Patient was therefore discharged home on antiemetic suppositories since she already has prescribed oral antiemetics at home. Patient is advised to follow-up with her [employer] physician in 3 to 5 days for reevaluation. Patient was also advised to return to the ED immediately if symptoms get worse. - Differential Diagnosis Hyperemesis gravidarum; dehydration; GERD; viral syndrome Critical care attestation.: If time is entered above; I have spent that time in minutes in the direct care of this critically ill patient, excluding procedure time. ED Disposition Clinical Impression: Severe hyperemesis gravidarum Disposition: HOME / SELF CARE / HOMELESS Is pt being admited?: No Does the pt Need Aspirin: No Condition: Stable Additional Instructions: All lab test results were reviewed and are all nonactionable. Therefore maintain a clear liquid diet for 1224 hrs., follow-up with your [employer] physician in 3 to 5 days for reevaluation. Take medication for nausea and vomiting as advised, and use the antiemetic suppository if you are unable to keep anything down. Return to the ED immediately if symptoms get worse. Prescriptions: Famotidine [Pepcid] 20 mg PO BID #60 tablet Promethazine [Phenergan SUPPOS] 25 mg AZ Q6HR PRN #30 supp.rect PRN Reason: Nausea Referrals: CASSANDRA KINCAID MD [Staff Physician] - 3-5 Days Time of Disposition: 06:51 Print Language: FAROESE
[2021-06-07] MEDS ORDERED: ACETAMINOPHEN 500 MG TAB PO ONE (04:12)
[2021-06-07] MEDS ORDERED: SODIUM CHLORIDE 0.9% 1000 ML 1,000 ML IV ONE (04:12)
[2021-06-07] MEDS ORDERED: FAMOTIDINE 20 MG/2 ML INJ IV ONE (04:12)
[2021-06-07] MEDS ORDERED: METOCLOPRAMIDE 10 MG/2 ML INJ IV ONE (04:12)
[2021-06-07] MEDS ORDERED: diphenhydrAMINE 50 MG/ML VIAL IV ONE (04:13)
[2021-06-07 07:35] VITALS: BP 171/87
== END 2021-06-07 07:35 | disposition home or self-care (01) ==
LOC: ED 21:41
DX: O21.1 Hyperemesis gravidarum with metabolic disturbance (principal); O26.891 Other specified pregnancy related conditions, first trimester; R10.84 Generalized abdominal pain; I10 Essential (primary) hypertension; Z79.899 Other long term (current) drug therapy
CPT/HCPCS: 36415; 80053; 81001; 84703; 85025; 96361; 96374; 96375; 99283; J1200; J2765; J7030

== ENCOUNTER 2021-06-12 13:53 | Inpatient (IN) | payer MEDICAID ==
[2021-06-12] MEDS ORDERED: ONDANSETRON 4 MG/2 ML INJ IV PRN (13:56)
--- NOTE | 2021-06-12 14:24 | History and Physical Report ---
History of Present Illness Date of examination: 06/12/21 Chief complaint: persistent vomiting History of present illness: EDC Calculations by LMP: 01/05/2022 Past History : 4 Term Births: 2 Premature Births: 0 Living Children: 2 Para: 2 Mult. Births: 0 Prev : 0 Prev. attempt? 0 Aborta: 1 Elect. Ab: 1 Spont. Ab: 0 Ectopics: 0 # 1 Delivery date: 2009 Weeks Gestation: Term labor: no Delivery type: Hours of labor: 24 Anesthesia type: epidural Delivery location: [facility] Sex: Female weight: 7-14 Comments: IOL - Pre-eclampsia # 2 Delivery date: 2014 Weeks Gestation: Term labor: no Delivery type: Hours of labor: "can't remember" Anesthesia type: epidural Delivery location: [facility] Infant Sex: Male weight: 8-0 Comments: IOL - pre-eclampsia # 3 Delivery date: 01/2020 Weeks Gestation: 6 Delivery type: EAB Comments: vaccum; denies complications Past Medical History: Reviewed history from 02/16/2020 and no changes required: Hypertension - dx in 2019 - Rx given for Lisinopril but pt not taking Fibroids - dx 2019 Ovarian Cysts - dx 2019 Past Surgical History: Reviewed and updated today: D&C: x 1 (vaccum) 2020 Cyst removed on lower back - [id number] Denies any prior history of complications from anesthesia. Denies any history of surgical complications. Family History Summary: Reviewed history and no changes required: 05/19/2021 MGM - Has Family History of Lung Cancer - Entered On: 02/16/2020 General Comments - FH: Mother - DM Social History: Reviewed history from 02/16/2020 and no changes required: Patient is single Smoking History: Patient has never smoked. 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 % Family History Risk Factors: Family History of WA in 1 Female Relative Age < 65: no Family History of [place] in 1 Male Relative Age < 55: no No Dietary Counseling Reason: pn yes Alcohol Use: no Drug Use: no Past Medical History Anesthesia Complications: negative Anemia: negative Autoimmune Disorder: negative Bleeding Disorder: negative Blood Transfusions: negative Breast Disease: negative Diabetes: negative Heart Disease: negative Hypertension: positive, in pregnancies Hepatitis/Liver Disease: negative Kidney Disease/UTI: negative Neurologic/Epilepsy/Migraines: negative Phlebitis/Varicosities: negative Psychiatric: negative Pulmonary Disease/Asthma: negative Thyroid Disease: negative 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 Denies any history of surgical complications. Abnormal PAP: negative, last pap WNL on 07/2019 per pt MARTI Exposure: negative Infertility: negative Uterine Anomaly: negative Uterine Surgery (not C/S): negative Other Gynecologic Problems: negative Social Hx: Patient is single Smoking History: Patient has never smoked. Infection History Hx of STD: none HIV Risk Eval: no Hepatitis B Risk Eval: low risk Personal hx. of genital herpes: no Partner hx. of genital herpes: no Rash, Viral, or Febrile illness since last LMP? no Varicella/Chicken Pox Status: Previous Disease TB Risk: no Genetic History Congenital Heart Defect: Mom: no Dad: no Buck Disease: Mom: no Dad: no Thalassemia Mom: no Dad: no Neural Tube Defect Mom: no Dad: no Down's Syndrome Mom: no Dad: no Kendall-Sachs Mom: no Dad: no Sickle Cell Disease/Trait Mom: no Dad: no Hemophilia Mom: no Dad: no Muscular Dystrophy Mom: no Dad: no Cystic Fibrosis Mom: no Dad: no [place] Chorea Mom: no Dad: no Mental Retardation Mom: no Dad: no Fragile X Mom: no Dad: no Other Genetic/Chromosomal Disorder Mom: no Dad: no Child w/other defect Mom: no Dad: no Enviromental Exposures Enviromental Exposures Reviewed Xray Exposure: no Medication, drug, or alcohol use since LMP: no Chemical/Other Exposure: no Exposure to Cat Liter: no Hx of Parvovirus (Fifth Disease): no Occupational Exposure to Children: none FALSECurrent Allergies (reviewed today): No known allergies Past History Past Medical History: other (see HPI) Past Surgical History: other (see HPI) 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) Family/Genetic History: other (see HPI) Social history: no significant social history - Obstetrical History Expected Date of Delivery: 01/05/22 Actual Gestation: 10 Week(s) 3 Day(s) : 4 Para: 2 Hx # Term Pregnancies: 2 Number of Pregnancies: 0 Spontaneous Abortions: 0 Induced : 1 Number of Living Children: 2 Medications and Allergies Allergies Allergy/AdvReac Type Severity Reaction Status Date / Time No Known Allergies Allergy Verified 05/15/21 17:23 Home Medications Medication Instructions Recorded Confirmed Last Taken Type Ibuprofen [Motrin] 800 mg PO Q8HR PRN #30 tablet 01/14/21 Unknown Rx Tobramycin/Dexamethasone [Tobradex 2 drop OP Q4HR 7 Days #1 drops.susp 01/14/21 Unknown Rx Eye Drops 0.3/0.1%] Pyridoxine HCl (Vitamin B6) 25 mg PO TID #20 tablet 05/02/21 Unknown Rx [Pyridoxine HCl] Acetaminophen [Tylenol] 500 mg PO Q6HR PRN #30 tablet 05/16/21 Unknown Rx Promethazine [Phenergan] 25 mg PO Q6HR PRN #30 tab 05/16/21 Unknown Rx Ondansetron [Zofran Odt] 4 mg PO Q8HR PRN #20 tab.rapdis 05/27/21 Unknown Rx Promethazine HCl [Phenergan SUPPOS] 25 mg RC Q8HR PRN #10 supp.rect 05/27/21 Unknown Rx Doxylamine Succinate [Unisom] 25 mg PO BID PRN #30 tablet 06/02/21 Unknown Rx Jeane Root [Jeane] 250 mg PO QID PRN 40 Days #40 06/02/21 Unknown Rx capsule Pyridoxine HCl (Vitamin B6) 50 mg PO BID PRN #20 tablet 06/02/21 Unknown Rx [Pyridoxine HCl] Famotidine [Pepcid] 20 mg PO BID #60 tablet 06/07/21 Unknown Rx Promethazine [Phenergan SUPPOS] 25 mg [place] Q6HR PRN #30 supp.rect 06/07/21 Unknown Rx Active Meds: Active Medications Dextrose/Lactated Ringer's (D5lr) 1,000 mls @ 500 mls/hr IV DIRECT AUBREY Stop: 06/13/21 15:59 Dextrose/Lactated Ringer's (D5lr) 1,000 mls @ 150 mls/hr IV DIRECT AUBREY Metoclopramide HCl (Metoclopramide 10 Mg/2 Ml Inj) 10 mg IV Q6H AUBREY Multivitamins/Iron/Calcium ( Wgg09-Dm Fumarate-Folic Acid Vit Tab) 1 each PO QDAY AUBREY Ondansetron HCl (Ondansetron 4 Mg/2 Ml Inj) 4 mg IV Q6H PRN PRN Reason: N/V unrelieved by Joseph Promethazine HCl (Promethazine 25 Mg Rect Supp) 25 mg OK Q6H AUBREY Review of Systems All systems: negative Constitutional: weight loss, fatigue, weakness, poor appetite - Physical Exam Breasts: Cardiovascular: Regular rate, Normal S2 Abdomen: Positive: normal appearance, soft, normal bowel sounds. Negative: distention, tenderness Vulva: both: normal Vagina: Positive: normal moisture. Negative: discharge Cervix: Negative: lesion, discharge Extremities: Deep Tendon Reflex Grade: Normal +2 Results All other labs normal. Assessment and Plan 35y/o @ 10w3d sent for admission from office d/t hyper emesis and wt loss. wt in ED 06/06 256, in office today was 247. pre- wt 260. Admission orders in EMR. - Patient Problems (1) 10 weeks gestation of Status: Acute (2) Severe hyperemesis gravidarum Status: Acute Plan to address problem: Hyperemesis pathway
[2021-06-12] MEDS: METOCLOPRAMIDE 10 MG/2 ML INJ IV SCH (18:11)
[2021-06-12] MEDS: D5W/LACTATED RINGERS 1,000 ML IV SCH ×2 (18:12→20:11)
[2021-06-12] MEDS: PROMETHAZINE 25 MG RECT SUPP PR SCH ×2 (18:15→20:00)
[2021-06-12 19:37] LABS: Blood Urea Nitrogen 11 mg/dL (7-17); Calcium 8.8 mg/dL (8.4-10.2); Hemolysis Index 2
[2021-06-12 19:38] LABS: BUN/Creatinine Ratio 22
[2021-06-12 20:36] LABS: Bacteria,Urine 1+ /HPF (Negative); Bilirubin,Urine NEG (Negative); Blood,Urine NEG (Negative); Color,Urine Yellow (Yellow); Hyaline Casts,Urine 1 /LPF; Mucus,Urine 3+ /HPF; Urobilinogen,Urine < 2.0 mg/dL (<2.0)
[2021-06-12] MEDS: POTASSIUM CHLORIDE 10 MEQ 10 MEQ/100 ML BAG IV SCH ×2 (21:31→21:35)
[2021-06-13] MEDS: METOCLOPRAMIDE 10 MG/2 ML INJ IV SCH ×4 (00:47→19:05)
[2021-06-13] MEDS: PROMETHAZINE 25 MG RECT SUPP PR SCH ×2 (02:00→20:49)
[2021-06-13] MEDS: D5W/LACTATED RINGERS 1,000 ML IV SCH ×3 (05:53→23:19)
--- NOTE | 2021-06-13 08:38 | Progress Note ---
Assessment and Plan A: 35 y.o. @ 10.5 wks admitted for hyperemesis. P: Continue with anterpartum care. Advance diet to clear liquids. Subjective - Subjective Date of service: 06/14/21 (Pt with continued n/v, but would like to try clear liquids) Principal diagnosis: IUP @ 10.4 weeks with hyperemesis Patient reports: pain well controlled, ambulating normally [place]: doing well Objective - Vital Signs Latest vital signs: Vital Signs Temp Pulse Resp BP BP Pulse Ox 06/13/21 04:42 98.2 F 79 16 134/78 99 06/12/21 23:47 98.1 F 71 16 123/77 100 06/12/21 20:05 98.3 F 87 20 116/65 99 06/12/21 20:00 100 06/12/21 17:24 100 06/12/21 15:15 98.5 F 84 16 144/84 100 Intake and Output 06/12/21 06/13/21 06/13/21 22:59 06:59 14:59 Intake Total 1118.334 Output Total 400 250 Balance 718.334 -250 Intake: IV 998.334 D5lr 1,000 ml @ 500 mls/ 991.667 hr IV DIRECT AUBREY Rx#: [id number] KCL 10MEQ/100ML 10 meq In 6.667 100 ml @ 100 mls/hr IV Q1H AUBREY Rx#:[id number] Intake, Free Water 120 Output: Urine 400 250 Void 200 250 Other: Total, Output Amount 200 100 Voiding Method Toilet # Voids 1 Void 1 1 Weight 241 lb 250 lb 0.067 oz - Exam Narrative Exam: Pt still has continued n/v but states that it is slowing down. Having some cramping. Explained that this was normal in early and it could also be from frequent episodes of n/v. Discussed we will continue to monitor closely and change her diet to clear liquids. She had her potassium replaced and a redraw ordered. Breasts: Present: deferred Cardiovascular: Present: Regular rate Lungs: Present: Normal air movement Abdomen: Present: normal appearance, soft Uterus: Present: normal - Labs Labs: Abnormal lab results 06/12/21 Range/Units 18:45 Sodium 136 L (137-145) mmol/L Potassium 3.2 L (3.6-5.0) mmol/L Carbon Dioxide 20 L (22-30) mmol/L Creatinine 0.5 L (0.6-1.2) mg/dL Glucose 208 H (65-100) mg/dL
--- NOTE | 2021-06-13 08:59 | Ultrasound Report ---
FIRSTTRIMESTER OBSTETRIC ULTRASOUND HISTORY: heart tones, well-being COMPARISON: 05/15/2021 TECHNIQUE: Routine transabdominal OB ultrasound performed. FINDINGS: Uterus: Mildly enlarged measuring 14 x 8 x 10 cm. Gestational Sac: Well-defined oval shape and intrauterine in location. Yolk Sac: Not clearly demonstrated Fetus/Embryo: [place]-rump length of 3.67 cm, corresponding to an estimated gestational age of 10 weeks 4 days. Embryonic/ anatomy is too small for evaluation. Embryonic/ cardiac activity: 153bpm Placenta: Too small for evaluation. Amniotic fluid volume: Subjectively appropriate for gestational age. Ovaries: The left ovary is unremarkable measuring 2.5 x 2.8 x 2.4 cm. The right ovary measures 2.2 x 3.1 x 2.4 and contains a 1.4 cm hypoechoic lesion which probably represents a corpus luteum cyst. Additional findings: Scattered uterine fibroids are identified. The largest fibroid in the anterior w all measures up to 4.4 cm. IMPRESSION Early live intrauterine . No acute abnormality is detected. Uterine fibroids. Signer Name: Davie Sharma Jr, MD Signed: 06/13/2021 8:54 AM Workstation Name: [id number]
[2021-06-13] MEDS ORDERED: ACETAMINOPHEN 500 MG TAB PO PRN (09:00)
[2021-06-13] MEDS: PRENATAL VIT27-FE FUMARATE-FOLIC ACID VIT TAB PO SCH (14:19)
[2021-06-13] MEDS: FAMOTIDINE 20 MG/2 ML INJ IV SCH ×2 (17:48→21:29)
[2021-06-14] MEDS: METOCLOPRAMIDE 10 MG/2 ML INJ IV SCH ×4 (02:07→21:03)
[2021-06-14] MEDS: PROMETHAZINE 25 MG RECT SUPP PR SCH ×4 (02:11→21:05)
[2021-06-14] MEDS ORDERED: POTASSIUM CHLORIDE ER 20 MEQ TAB PO ONE (03:43)
[2021-06-14] MEDS: D5W/LACTATED RINGERS 1,000 ML IV SCH ×2 (06:00→14:54)
--- NOTE | 2021-06-14 08:57 | Progress Note ---
Subjective - Subjective Date of service: 06/14/21 (pt asking to go home) Principal diagnosis: IUP @ 10.5 weeks with hyperemesis Patient reports: other (no vomiting overnight) Objective - Vital Signs Vital Signs: Vital Signs - 12hr 06/13/21 06/14/21 06/14/21 23:33 04:41 07:36 Temperature 98.2 F 98.2 F 97.6 F Pulse Rate 68 79 82 Respiratory 20 20 16 Rate Blood Pressure 115/58 123/69 121/68 O2 Sat by Pulse 100 99 99 Oximetry - Exam Breasts: deferred Cardiovascular: Regular rate Lungs: Clear to auscultation Abdomen: Present: normal appearance, soft. Absent: distention, tenderness Uterus: Present: normal FHR: auscultation normal Extremities: normal Deep Tendon Reflex Grade: Normal +2 - Labs Labs: Abnormal Labs 06/12/21 06/13/21 18:45 09:26 Sodium 136 L Potassium 3.2 L 3.4 L Carbon Dioxide 20 L Creatinine 0.5 L Glucose 208 H Laboratory Results - last 24 hr 06/13/21 06/13/21 06/14/21 09:26 09:33 02:15 Potassium 3.4 L Urine Ketones 20 Coronavirus (PCR) Negative
--- NOTE | 2021-06-14 09:11 | Progress Note ---
Assessment and Plan - Patient Problems (1) Hyperemesis affecting , antepartum Onset Date: ~06/13/21 Current Visit: Yes Status: Acute Plan to address problem: Pt asking @ d/c Will advance diet and make sure pt is tolerating VSS No overnight vomiting reported. Hyperemisis @ 10w P: monitor intake and tolerance Will plan to d/c later today if pt does well. Subjective Date of service: 06/14/21 (will advance diet; pt desires d/c) Principal diagnosis: IUP @ 10.5 weeks with hyperemesis Objective - Constitutional Vitals: Vital Signs - 12hr 06/13/21 06/14/21 06/14/21 23:33 04:41 07:36 Temperature 98.2 F 98.2 F 97.6 F Pulse Rate 68 79 82 Respiratory 20 20 16 Rate Blood Pressure 115/58 123/69 121/68 O2 Sat by Pulse 100 99 99 Oximetry General appearance: Present: no acute distress, well-nourished - EENT Eyes: PERRL, EOM intact ENT: hearing intact, clear oral mucosa Ears: bilateral: normal - Neck Neck: supple, normal ROM - Respiratory Respiratory effort: normal Respiratory: bilateral: CTA - Breasts Breasts: deferred - Cardiovascular Rhythm: regular Heart Sounds: Present: S1 & S2. Absent: gallop, rub Extremities: pulses intact, No edema, normal color, Full ROM - Gastrointestinal General gastrointestinal: Present: soft, non-tender Rectal Exam: deferred - Genitourinary Female genitourinary: deferred - Integumentary Integumentary: clear, warm, dry - Musculoskeletal Musculoskeletal: 1, strength equal bilaterally - Neurologic Neurologic: moves all extremities - Psychiatric Psychiatric: memory intact, appropriate mood/affect, intact judgment & insight - Labs CBC & Chem 7: 06/13/21 09:26 Labs: Abnormal lab results 06/13/21 Range/Units 09:26 Potassium 3.4 L (3.6-5.0) mmol/L Medications & Allergies - Medications Allergies/Adverse Reactions: Allergies No Known Allergies Allergy (Verified 05/15/21 17:23) Home Medications: Home Medications Medication Instructions Recorded Confirmed Last Taken Type Ibuprofen [Motrin] 800 mg PO Q8HR PRN #30 tablet 01/14/21 06/13/21 Unknown Rx Tobramycin/Dexamethasone [Tobradex 2 drop OP Q4HR 7 Days #1 drops.susp 01/14/21 06/13/21 Unknown Rx Eye Drops 0.3/0.1%] Pyridoxine HCl (Vitamin B6) 25 mg PO TID #20 tablet 05/02/21 06/13/21 Unknown Rx [Pyridoxine HCl] Acetaminophen [Tylenol] 500 mg PO Q6HR PRN #30 tablet 05/16/21 06/13/21 Unknown Rx Promethazine [Phenergan] 25 mg PO Q6HR PRN #30 tab 05/16/21 06/13/21 Unknown Rx Ondansetron [Zofran Odt] 4 mg PO Q8HR PRN #20 tab.rapdis 05/27/21 06/13/21 Unknown Rx Promethazine HCl [Phenergan SUPPOS] 25 mg RC Q8HR PRN #10 supp.rect 05/27/21 06/13/21 Unknown Rx Doxylamine Succinate [Unisom] 25 mg PO BID PRN #30 tablet 06/02/21 06/13/21 Unknown Rx Jeane Root [Jeane] 250 mg PO QID PRN 40 Days #40 06/02/21 06/13/21 Unknown Rx capsule Pyridoxine HCl (Vitamin B6) 50 mg PO BID PRN #20 tablet 06/02/21 06/13/21 Unknown Rx [Pyridoxine HCl] Famotidine [Pepcid] 20 mg PO BID #60 tablet 06/07/21 06/13/21 Unknown Rx Promethazine [Phenergan SUPPOS] 25 mg [place] Q6HR PRN #30 supp.rect 06/07/21 06/13/21 Unknown Rx Active Medications: Generic Name Dose Route Start Last Admin Trade Name Freq PRN Reason Stop Dose Admin Acetaminophen 1,000 mg 06/13/21 09:00 06/13/21 10:09 Acetaminophen 500 Mg Tab PO 1,000 mg Q6H PRN Administration Pain, Mild (1-3) Famotidine 20 mg 06/13/21 17:31 06/13/21 21:29 Famotidine 20 Mg/2 Ml Inj IV 20 mg BID AUBREY Administration Dextrose/Lactated Ringer's 1,000 mls @ 150 mls/hr 06/12/21 14:00 06/14/21 06:00 D5lr IV 150 mls/hr DIRECT AUBREY Administration Metoclopramide HCl 10 mg 06/12/21 14:00 06/14/21 08:23 Metoclopramide 10 Mg/2 Ml Inj IV 10 mg Q6H AUBREY Administration Multivitamins/Iron/Calcium 1 each 06/13/21 10:00 06/13/21 14:19 Dlp15-Ps Fumarate-Folic Acid Vit Tab PO Not Given QDAY AUBREY Ondansetron HCl 4 mg 06/12/21 13:56 Ondansetron 4 Mg/2 Ml Inj IV Q6H PRN N/V unrelieved by Joseph Promethazine HCl 25 mg 06/12/21 14:00 06/14/21 08:33 Promethazine 25 Mg Rect Supp [place] 25 mg Q6H AUBREY Administration
[2021-06-14] MEDS: PRENATAL VIT27-FE FUMARATE-FOLIC ACID VIT TAB PO SCH (10:29)
[2021-06-14] MEDS: FAMOTIDINE 20 MG/2 ML INJ IV SCH ×2 (10:29→22:06)
[2021-06-15] MEDS: D5W/LACTATED RINGERS 1,000 ML IV SCH (00:02)
[2021-06-15] MEDS: METOCLOPRAMIDE 10 MG/2 ML INJ IV SCH ×3 (03:33→16:17)
[2021-06-15] MEDS: PROMETHAZINE 25 MG RECT SUPP PR SCH ×2 (06:29→16:17)
--- NOTE | 2021-06-15 08:42 | Discharge Summary ---
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 Pt reports no vomiting X 24hr. She is tolerating soft foods. Will d/c with RX antiemetic & pepcid Disposition: 01 HOME / SELF CARE / HOMELESS Final Discharge Diagnosis (Prints w/discharge instructions): hyperemisis Time spent for discharge: 20min - Discharge Diagnoses (1) Hyperemesis affecting , antepartum Status: Acute Comment: continue to hydrate, solid food as tolerated Keep next appt in OB office Core Measure Documentation - Palliative Care Palliative Care/ Comfort Measures: Not Applicable - Core Measures Any of the following diagnoses?: none - VTE Discharge Requirements Deep Vein Thrombosis/Pulmonary Embolism Present on Admission: No Has pt received <5 days of overlap therapy or INR<2.0: No Anticoagulant overlap therapy prescribed at discharge: No Contraindication No Overlap Therapy order at DC: Not Indicated - Acute DC Discharge Requirements Aspirin at discharge: No Reason for no aspirin on DC: Medical contraindication JOSSELIN/ARB for LVSD if EF <40%: Not Applicable Reason for no JOSSELIN/ARB: Medical contraindication Beta leonel at discharge: No Reason for no beta leonel on DC: Medical contraindication Statin for LDL = or >100 mg/dl on DC: Not Applicable Reason for no statin on DC: Medical contraindication - Heart Failure Discharge Requirements JOSSELIN/ARB for LVSD if EF <40%: Not Applicable Reason for no JOSSELIN/ARB: Medical contraindication Beta leonel at discharge: No Reason for no beta leonel on DC: Medical contraindication - Stroke Discharge Requirements Statin for LDL = or >70 mg/dl on DC: Not Applicable Reason for no statin on DC: Not Indicated Anticoag for atrial fib/atrial flutter: Not Applicable Reason for no anticoag for AF/F on DC: Not Indicated Antithrombotic for ischemic stroke: No Reason for no antithrombotic on DC: Not Indicated Exam - Constitutional Vitals: Temp Pulse Resp BP Pulse Ox 98.2 F 84 20 136/84 99 06/15/21 04:47 06/15/21 04:47 06/15/21 04:47 06/15/21 04:47 06/15/21 04:47 General appearance: Present: no acute distress, well-nourished - EENT Eyes: Present: PERRL ENT: hearing intact, clear oral mucosa - Neck Neck: Present: supple, normal ROM - Respiratory Respiratory effort: normal Respiratory: bilateral: CTA - Cardiovascular Heart Sounds: Present: S1 & S2. Absent: rub, click - Extremities Extremities: pulses symmetrical, No edema Peripheral Pulses: within normal limits - Abdominal General gastrointestinal: Present: soft, non-tender, non-distended, normal bowel sounds Female genitourinary: Present: deferred - Rectal Rectal Exam: deferred - Integumentary Integumentary: Present: clear, warm, dry - Musculoskeletal Musculoskeletal: gait normal, strength equal bilaterally - Psychiatric Psychiatric: appropriate mood/affect, intact judgment & insight - Neurologic Neurologic: CNII-XII intact, moves all extremities Plan Activity: advance as tolerated Weight Bearing Status: Weight Bear as Tolerated Diet: advance as tolerated Care Plan Goals: weight gain; hydration Follow up with: PRIMARY CARE, [Primary Care Provider] - 7 Days DORCAS BELL CNM [Advanced Practice Nurse] - 06/27/21 9:15 am (Take medications as instructed. Sips of fluid throughout the day. Advance diet as tolerated. You will have your sugar test at your visit on the , remember no sugar to eat or drink prior to visit. Please drink water that morning. Call with any concerns.) Prescriptions: Famotidine [Pepcid] 20 mg PO BID #30 tablet Metoclopramide [Reglan] 10 mg PO TID #60 tab Ondansetron (Nf) [Zofran TAB] 8 mg PO Q8HR PRN #20 tablet PRN Reason: Nausea
[2021-06-15 09:44] VITALS: BP 110/56
[2021-06-15] MEDS: FAMOTIDINE 20 MG/2 ML INJ IV SCH (10:00)
== END 2021-06-15 11:30 | disposition home or self-care (01) | DRG 781 ==
LOC: 3A 13:53 → UNDOADMIN 13:53 → OB 14:49
PROVIDERS: ADMIT Obstetrics & Gynecology; ATTEND Obstetrics & Gynecology
DX: O21.0 Mild hyperemesis gravidarum (principal); Z3A.10 10 weeks gestation of pregnancy; O16.1 Unspecified maternal hypertension, first trimester; Z20.822 Contact with and (suspected) exposure to COVID-19
CPT/HCPCS: 36415; 76801; 80048; 81001; 82010; 82150; 83690; 84132; 84439; 84443; 84481; G0378; J2765; J3480; J7121; U0003

== ENCOUNTER 2021-10-08 21:45 | Emergency (ER) | payer MEDICAID ==
[2021-10-09] MEDS ORDERED: IBUPROFEN 800 MG TAB PO ONE (02:02)
[2021-10-09] MEDS ORDERED: ONDANSETRON 4 MG ODT TAB PO ONE (02:03)
[2021-10-09] MEDS ORDERED: FAMOTIDINE 20 MG TAB PO ONE (02:03)
--- NOTE | 2021-10-09 03:55 | XRay Report ---
XR chest routine 2V INDICATION / CLINICAL INFORMATION: cough, chills. COMPARISON: 04/30/2020 FINDINGS: SUPPORT DEVICES: None. HEART /PULMONARY VASCULATURE: No significant abnormality. LUNGS / PLEURA: No significant pulmonary or pleural abnormality. No pneumothorax. ADDITIONAL FINDINGS: No significant additional findings. IMPRESSION: 1. No acute findings. Signer Name: Bob Myers MD Signed: 10/09/2021 3:51 AM Workstation Name: [id number]
--- NOTE | 2021-10-09 04:14 | Emergency Department Report ---
ED N/V/D HPI - General Chief complaint: Pain General Stated complaint: body aches, covid s/s Time Seen by Provider: 10/09/21 01:32 Source: patient Mode of arrival: Ambulatory Limitations: No Limitations - History of Present Illness Initial comments: 36-year-old female the past medical history migraines and hypertension presents to the hospital complaining of infectious symptoms x1 day. She has had nausea, vomiting, and diarrhea decreased p.o. intake patient claims a headache and chest tightness with mild shortness of breath. Positive cough reported. Temperature high of 99. Patient has not received a flu shot or Covid shot. States she had Covid last year which required hospital admission at that time. She is not currently . Patient denies current abdominal pain but states she does have pain with vomiting episodes. Patient states she took a home Covid test today which was negative - Related Data Previous Rx's Medication Instructions Recorded Last Taken Type Tobramycin/Dexamethasone [Tobradex 2 drop OP Q4HR 7 Days #1 drops.susp 01/14/21 Unknown Rx Eye Drops 0.3/0.1%] Pyridoxine HCl (Vitamin B6) 25 mg PO TID #20 tablet 05/02/21 Unknown Rx [Pyridoxine HCl] Promethazine [Phenergan] 25 mg PO Q6HR PRN #30 tab 05/16/21 Unknown Rx Promethazine HCl [Phenergan SUPPOS] 25 mg RC Q8HR PRN #10 supp.rect 05/27/21 Unknown Rx Doxylamine Succinate [Unisom] 25 mg PO BID PRN #30 tablet 06/02/21 Unknown Rx Jeane Root [Jeane] 250 mg PO QID PRN 40 Days #40 06/02/21 Unknown Rx capsule Pyridoxine HCl (Vitamin B6) 50 mg PO BID PRN #20 tablet 06/02/21 Unknown Rx [Pyridoxine HCl] Promethazine [Phenergan SUPPOS] 25 mg ND Q6HR PRN #30 supp.rect 06/07/21 Unknown Rx Famotidine [Pepcid] 20 mg PO BID #30 tablet 06/14/21 Unknown Rx Metoclopramide [Reglan] 10 mg PO TID #60 tab 06/14/21 Unknown Rx Ondansetron (Nf) [Zofran TAB] 8 mg PO Q8HR PRN #20 tablet 06/14/21 Unknown Rx Acetaminophen [Acetaminophen TAB] 500 mg PO Q6HR PRN #20 tablet 10/09/21 Unknown Rx Benzonatate [Tessalon Perles] 100 mg PO Q8HR PRN #20 capsule 10/09/21 Unknown Rx Famotidine [Pepcid] 20 mg PO BID #20 tablet 10/09/21 Unknown Rx Ibuprofen [Motrin 800 MG tab] 800 mg PO Q8HR PRN #30 tablet 10/09/21 Unknown Rx Ondansetron [Zofran ODT TAB] 4 mg PO Q8HR PRN #20 tab.rapdis 10/09/21 Unknown Rx Allergies Allergy/AdvReac Type Severity Reaction Status Date / Time No Known Allergies Allergy Verified 05/15/21 17:23 ED Review of Systems ROS: Stated complaint: body aches, covid s/s Other details as noted in HPI Comment: All other systems reviewed and negative ED Past Medical Hx - Past Medical History Hx Hypertension: Yes Hx Heart Attack/AMI: No Hx Congestive Heart Failure: No Hx Diabetes: No Hx Deep Vein Thrombosis: No Hx Pulmonary Embolism: No Hx GERD: No Hx Liver Disease: No Hx Renal Disease: No Hx Sickle Cell Disease: No Hx Arthritis: No Hx Headaches / Migraines: Yes Hx Seizures: No Hx Kidney Stones: No Hx Asthma: No Hx COPD: No Hx Tuberculosis: No Hx Dementia: No Hx HIV: No Additional medical history: Vaginal delivery x 2 - Surgical History Hx Coronary Stent: No Hx Open Heart Surgery: No Hx Pacemaker: No Hx Internal Defibrillator: No Hx Cholecystectomy: No Hx Appendectomy: No Hx Breast Surgery: No Additional Surgical History: cyst on right buttock. - Social History Smoking Status: Never Smoker - Medications Home Medications: Home Medications Medication Instructions Recorded Confirmed Last Taken Type Tobramycin/Dexamethasone [Tobradex 2 drop OP Q4HR 7 Days #1 drops.susp 01/14/21 06/13/21 Unknown Rx Eye Drops 0.3/0.1%] Pyridoxine HCl (Vitamin B6) 25 mg PO TID #20 tablet 05/02/21 06/13/21 Unknown Rx [Pyridoxine HCl] Promethazine [Phenergan] 25 mg PO Q6HR PRN #30 tab 05/16/21 06/13/21 Unknown Rx Promethazine HCl [Phenergan SUPPOS] 25 mg RC Q8HR PRN #10 supp.rect 05/27/21 06/13/21 Unknown Rx Doxylamine Succinate [Unisom] 25 mg PO BID PRN #30 tablet 06/02/21 06/13/21 Unk nown Rx Jeane Root [Jeane] 250 mg PO QID PRN 40 Days #40 06/02/21 06/13/21 Unknown Rx capsule Pyridoxine HCl (Vitamin B6) 50 mg PO BID PRN #20 tablet 06/02/21 06/13/21 Unknown Rx [Pyridoxine HCl] Promethazine [Phenergan SUPPOS] 25 mg ND Q6HR PRN #30 supp.rect 06/07/21 06/13/21 Unknown Rx Famotidine [Pepcid] 20 mg PO BID #30 tablet 06/14/21 Unknown Rx Metoclopramide [Reglan] 10 mg PO TID #60 tab 06/14/21 Unknown Rx Ondansetron (Nf) [Zofran TAB] 8 mg PO Q8HR PRN #20 tablet 06/14/21 Unknown Rx Acetaminophen [Acetaminophen TAB] 500 mg PO Q6HR PRN #20 tablet 10/09/21 Unknown Rx Benzonatate [Tessalon Perles] 100 mg PO Q8HR PRN #20 capsule 10/09/21 Unknown Rx Famotidine [Pepcid] 20 mg PO BID #20 tablet 10/09/21 Unknown Rx Ibuprofen [Motrin 800 MG tab] 800 mg PO Q8HR PRN #30 tablet 10/09/21 Unknown Rx Ondansetron [Zofran ODT TAB] 4 mg PO Q8HR PRN #20 tab.rapdis 10/09/21 Unknown Rx ED Physical Exam - General Limitations: Language Barrier - Other Other exam information: General: No acute distress Head: Atraumatic Eyes: normal appearance ENT: Moist mucous membranes Neck: Normal appearance, no midline tenderness Chest: Clear to auscultation bilaterally CV: Regular rate and rhythm Abdomen: Soft, normal bowel sounds, nontender, nondistended, no rebound or guarding Back: Normal inspection Extremity: Normal inspection, full range of motion Neuro: Alert O x 3, no facial asymmetry, speech clear, no gross motor sensory deficit Psych: Appropriate behavior Skin: No rash ED Course Vital Signs 10/09/21 01:08 Temperature 98.4 F Pulse Rate 87 Respiratory 16 Rate Blood Pressure 138/73 [Right] O2 Sat by Pulse 100 Oximetry ED Medical Decision Making - Medical Decision Making 36-year-old female presents to the hospital with complaints of nausea, vomiting, and respiratory symptoms were suggestive of viral syndrome. Initial vital signs unremarkable. No signs of fever, hypoxia, tachycardia, hypotension, or t achypnea. Patient provided Zofran, Motrin, and Pepcid with p.o. challenge. Chest x-ray unremarkable for acute infiltrate. Patient be treated symptomatically for viral syndrome Critical Care Time: No Critical care attestation.: If time is entered above; I have spent that time in minutes in the direct care of this critically ill patient, excluding procedure time. ED Disposition Clinical Impression: Acute gastroenteritis, Viral syndrome Disposition: 01 HOME / SELF CARE / HOMELESS Is pt being admited?: No Does the pt Need Aspirin: No Condition: Stable Instructions: Viral Gastroenteritis, Adult, [id number], Viral Illness, Adult Additional Instructions: Take the medication as prescribed. Follow-up with your doctor or doctor/clinic provided. Return if symptoms worsen as indicated by your discharge instructions. Prescriptions: Acetaminophen [Acetaminophen TAB] 500 mg PO Q6HR PRN #20 tablet PRN Reason: Pain , Severe (7-10) Ibuprofen [Motrin 800 MG tab] 800 mg PO Q8HR PRN #30 tablet PRN Reason: pain Famotidine [Pepcid] 20 mg PO BID #20 tablet Benzonatate [Tessalon Perles] 100 mg PO Q8HR PRN #20 capsule PRN Reason: Cough Ondansetron [Zofran ODT TAB] 4 mg PO Q8HR PRN #20 tab.rapdis PRN Reason: vomiting Referrals: PRIMARY CARE,MD [Primary Care Provider] - 3-5 Days
[2021-10-09 05:35] VITALS: BP 112/69
== END 2021-10-09 05:35 | disposition home or self-care (01) ==
LOC: ED 21:45
DX: K52.9 Noninfective gastroenteritis and colitis, unspecified (principal); B34.9 Viral infection, unspecified; I10 Essential (primary) hypertension; G43.909 Migraine, unspecified, not intractable, without status migrainosus; Z79.899 Other long term (current) drug therapy
CPT/HCPCS: 71046; 99283; J3490; Q0162